=== PATIENT | male | born 1985 | race Caucasian/White ===

== ENCOUNTER 2017-03-28 14:00 | Emergency (ER) | payer OTHER ==
[2017-03-28 14:07] VITALS: BP 133/84; PULSE 102; RESP 16; TEMP 968
[2017-03-28] MEDS ORDERED: IBUPROFEN 800 MG TAB PO STA (14:44)
--- NOTE | 2017-03-28 14:50 | ED ---
ENT HPI - General Chief complaint: Dental/Oral Stated complaint: Tooth Pain Source: patient Mode of arrival: ambulatory Limitations: no limitations - History of Present Illness Initial comments: Patient is a 32-year-old male presenting to the emergency department with complains of tooth pain. Patient states that he has very poor teeth and is in the process of having them pulled. Patient states he has an appointment with a dentist in [place] on March 31 to have his teeth pulled but is complaining of increased pain to primarily to the right side of his upper mouth getting increasingly worse over the last 4-5 days. Patient currently rates pain 8 out of 10 exacerbated with eating. Patient denies chills, fevers, nausea , vomiting, shortness of breath, chest pain, or abdominal pain. Patient denies trismus. Patient denies facial swelling or ear pain. Patient states that he took Motrin 200 this morning with minimal relief. Patient states that he has a history of fibromyalgia and normally takes tramadol and is on a pain contract. MD complaint: tooth pain Onset/Timin -: days(s) Location: tooth # (13) Severity: severe Severity scale (1-10): 10 Quality: sharp Consistency: constant Improves with: NSAID Worsens with: eating - Related Data Home Medications Medication Instructions Recorded Confirmed LORazepam [Ativan] 2 mg PO BID 03/28/17 03/28/17 buPROPion HCL [Wellbutrin SR] 150 mg PO 03/28/17 03/28/17 Previous Rx's Medication Instructions Recorded RX: Ibuprofen [Motrin] 800 mg PO Q6HR PRN #20 tab 07/03/16 RX: cloNIDine HCL [Catapres] 0.2 mg PO BID #10 tab 11/08/16 RX: traZODone HCL 100 mg PO BID #10 tab 11/08/16 Ibuprofen [Motrin] 800 mg PO Q8HR PRN #20 tab 03/28/17 RX: Penicillin V Potassium [Pen 500 mg PO QID #28 tab 03/28/17 Vee K] Allergies Allergy/AdvReac Type Severity Reaction Status Date / Time bee pollen Allergy Unknown Verified 03/28/17 14:07 venom-honey bee Allergy Unknown Verified 03/28/17 14:07 [bee venom (honey bee)] Review of Systems ROS Statement: Those systems with pertinent positive or pertinent negative responses have been documented in the HPI. ROS Other: All systems not noted in ROS Statement are negative. Past Medical History Past Medical History: Fibromyalgia, Hypertension Additional Past Medical History / Comment(s): carpal tunnel, back pain History of Any Multi-Drug Resistant Organisms: None Reported Past Surgical History: No Surgical Hx Reported Past Psychological History: Anxiety, Bipolar, Depression, Schizoaffective Disorder Smoking Status: Current every day smoker Past Alcohol Use History: None Reported Past Drug Use History: Marijuana General Exam Limitations: no limitations General appearance: alert, in no apparent distress Head exam: Present: atraumatic, normocephalic, normal inspection Eye exam: Present: normal appearance, PERRL. Absent: scleral icterus, conjunctival injection, periorbital swelling, periorbital tenderness ENT exam: Present: normal oropharynx, mucous membranes moist, TM's normal bilaterally, normal external ear exam Expanded Mouth exam: Present: tongue normal. Absent: drooling, trismus Teeth exam: Present: dental tenderness # (13), other (Very poor dentition with multiple tooth fractures and missing teeth) Throat exam: normal inspection. negative: tonsillar erythema, tonsillomegaly, tonsillar exudate, R peritonsillar mass, L peritonsillar mass Neck exam: Present: normal inspection, full ROM. Absent: tenderness, lymphadenopathy Respiratory exam: Present: normal lung sounds bilaterally. Absent: respiratory distress, wheezes, rales, rhonchi, stridor Cardiovascular Exam: Present: regular rate, normal rhythm, normal heart sounds. Absent: systolic murmur, diastolic murmur, rubs, gallop, clicks GI/Abdominal exam: Present: soft, normal bowel sounds. Absent: distended, tenderness, guarding, rebound, rigid Neurological exam: Present: alert, oriented X3, normal gait, other (No focal deficits noted) Psychiatric exam: Present: normal affect, normal mood Skin exam: Present: warm, dry, intact, normal color Course Vital Signs 03/28/17 14:04 Temperature 968.0 F H Pulse Rate 102 H Respiratory 16 Rate Blood Pressure 133/84 O2 Sat by Pulse 97 Oximetry Medical Decision Making - Medical Decision Making Dental pain. No evidence of abscess. Patient placed on antibiotics and given prescriptions for Motrin with instructions to keep dentist appointment. Patient agrees with treatment plan. Discharge instructions and return parameters reviewed. Disposition Clinical Impression: Tooth pain Disposition: HOME SELF-CARE Condition: Good Instructions: Toothache (ED) Additional Instructions: Please follow-up with dentist in [place] on March 30 as already scheduled. Finish oral antibiotics as prescribed. Continue Motrin as prescribed for pain as necessary. Please return to the emergency department if symptoms do not improve or get worse such as fevers, increased swelling, inability to open jaw, inability to swallow or any other worsening symptoms. Please follow up with a dentist. If you do not have a dentist, you may contact [facility]. Phone number is [phone] for existing clients. For new clients you may call [phone]. Another option is you have is the [facility]. Phone number is [phone]. Medications as directed. [place] gargles. Cold fluids can sometimes help with pain as well. Return to the Emergency Room for any worsening or changing symptoms. Use cold compresses to the outside of the face. Prescriptions: Ibuprofen [Motrin] 800 mg PO Q8HR PRN #20 tab PRN Reason: Pain RX: Penicillin V Potassium [Pen Vee K] 500 mg PO QID #28 tab Referrals: Bran Perera MD [Primary Care Provider] - 1-2 days Time of Disposition: 14:50
== END 2017-03-28 15:07 | disposition home or self-care (01) ==
LOC: EC 14:00
DX: K08.89 Other specified disorders of teeth and supporting structures (principal); F32.9 Major depressive disorder, single episode, unspecified; F41.9 Anxiety disorder, unspecified; F17.200 Nicotine dependence, unspecified, uncomplicated; Z91.030 Bee allergy status; Z91.018 Allergy to other foods; Z79.899 Other long term (current) drug therapy
CPT/HCPCS: 99282

== ENCOUNTER 2017-05-25 20:53 | Emergency (ER) | payer OTHER ==
[2017-05-25 21:09] VITALS: BP 172/98; PULSE 110; RESP 16; TEMP 98.6
--- NOTE | 2017-05-25 21:13 | ED ---
ENT HPI - General Chief complaint: Dental/Oral Stated complaint: Abscessed Tooth Time Seen by Provider: 05/25/17 21:10 Source: patient, RN notes reviewed Mode of arrival: ambulatory Limitations: no limitations - History of Present Illness Initial comments: 32-year-old male presents emergency Department chief complaint of left-sided dental pain that started yesterday. Patient states she woke up with swelling today. Patient denies any fever or chills states he has multiple fractured teeth in essentially eroded teeth. Patient states he has been seen in the [facility] in which she's been slowly getting his teeth pulled. Patient states that he's had multiple dental infections in the past. - Related Data Home Medications Medication Instructions Recorded Confirmed LORazepam [Ativan] 2 mg PO BID 03/28/17 03/28/17 buPROPion HCL [Wellbutrin SR] 150 mg PO 03/28/17 03/28/17 Previous Rx's Medication Instructions Recorded cloNIDine HCL [Catapres] 0.2 mg PO BID #10 tab 11/08/16 traZODone HCL 100 mg PO BID #10 tab 11/08/16 Ibuprofen [Motrin] 800 mg PO Q8HR PRN #20 tab 03/28/17 Penicillin V Potassium [Pen Vee K] 500 mg PO QID #28 tab 03/28/17 Hydrocodone/Acetaminophen [[place] 1 tab PO Q6HR PRN #15 tab 05/25/17 5-325] Penicillin V Potassium [Pen Vee K] 500 mg PO QID #40 tab 05/25/17 Allergies Allergy/AdvReac Type Severity Reaction Status Date / Time bee pollen Allergy Unknown Verified 05/25/17 21:08 venom-honey bee Allergy Unknown Verified 05/25/17 21:08 [bee venom (honey bee)] Review of Systems ROS Statement: Those systems with pertinent positive or pertinent negative responses have been documented in the HPI. ROS Other: All systems not noted in ROS Statement are negative. Past Medical History Past Medical History: Fibromyalgia, Hypertension Additional Past Medical History / Comment(s): carpal tunnel, back pain History of Any Multi-Drug Resistant Organisms: None Reported Past Surgical History: No Surgical Hx Reported Past Psychological History: Anxiety, Bipolar, Depression, Schizoaffective Disorder Smoking Status: Current every day smoker Past Alcohol Use History: None Reported Past Drug Use History: Marijuana General Exam Limitations: no limitations General appearance: alert, in no apparent distress Head exam: Present: atraumatic, normocephalic, normal inspection Eye exam: Present: normal appearance, PERRL, EOMI. Absent: scleral icterus, conjunctival injection, periorbital swelling ENT exam: Present: mucous membranes moist, TM's normal bilaterally, normal external ear exam. Absent: normal exam, normal oropharynx (Edentulous, swelling noted on the left lower gumline and of the left cheek) Neck exam: Present: normal inspection, full ROM. Absent: tenderness, meningismus, lymphadenopathy Respiratory exam: Present: normal lung sounds bilaterally. Absent: respiratory distress, wheezes, rales, rhonchi, stridor Cardiovascular Exam: Present: regular rate, normal rhythm, normal heart sounds. Absent: systolic murmur, diastolic murmur, rubs, gallop, clicks Course Vital Signs 05/25/17 21:06 Temperature 98.6 F Pulse Rate 110 H Respiratory 16 Rate Blood Pressure 172/98 O2 Sat by Pulse 99 Oximetry Medical Decision Making - Medical Decision Making 32-year-old male presented for dental infection. Patient placed on antibiotics at this time. Patient will follow-up with dentist return parameters were discussed Disposition Clinical Impression: Pain, dental, Fracture of tooth Disposition: HOME SELF-CARE Condition: Stable Instructions: Toothache (ED) Additional Instructions: Please return to the Emergency Department if symptoms worsen or any other concerns. Prescriptions: Hydrocodone/Acetaminophen [[place] 5-325] 1 tab PO Q6HR PRN #15 tab PRN Reason: Pain Penicillin V Potassium [Pen Vee K] 500 mg PO QID #40 tab Referrals: Bran Perera MD [Primary Care Provider] - 1-2 days Time of Disposition: 21:12
== END 2017-05-25 21:30 | disposition home or self-care (01) ==
LOC: EC 20:53
DX: S02.5XXA Fracture of tooth (traumatic), initial encounter for closed fracture (principal); F41.9 Anxiety disorder, unspecified; F32.9 Major depressive disorder, single episode, unspecified; F17.200 Nicotine dependence, unspecified, uncomplicated; Z79.899 Other long term (current) drug therapy; Z91.030 Bee allergy status
CPT/HCPCS: 99282

== ENCOUNTER 2017-08-01 15:48 | Emergency (ER) | payer OTHER ==
[2017-08-01 16:04] VITALS: BP 135/91; PULSE 95; RESP 18; TEMP 98.1
--- NOTE | 2017-08-01 16:10 | ED ---
ENT HPI - General Chief complaint: Dental/Oral Stated complaint: Dental Pain Time Seen by Provider: 08/01/17 16:05 Source: patient, RN notes reviewed Mode of arrival: ambulatory Limitations: no limitations - History of Present Illness Initial comments: 32-year-old male present emergency from for dental pain. Patient has multiple missing teeth and states he's been going to the [facility]. Patient states that he is scheduled for dental placement and more teeth extractions. - Related Data Home Medications Medication Instructions Recorded Confirmed LORazepam [Ativan] 2 mg PO BID 03/28/17 03/28/17 buPROPion HCL [Wellbutrin SR] 150 mg PO 03/28/17 03/28/17 Previous Rx's Medication Instructions Recorded RX: cloNIDine HCL [Catapres] 0.2 mg PO BID #10 tab 11/08/16 RX: traZODone HCL 100 mg PO BID #10 tab 11/08/16 Ibuprofen [Motrin] 800 mg PO Q8HR PRN #20 tab 03/28/17 RX: Penicillin V Potassium [Pen 500 mg PO QID #28 tab 03/28/17 Vee K] Hydrocodone/Acetaminophen [[place] 1 tab PO Q6HR PRN #15 tab 05/25/17 5-325] RX: Penicillin V Potassium [Pen 500 mg PO QID #40 tab 05/25/17 Vee K] Acetaminophen-Codeine 300-30mg 1 tab PO Q4H PRN #20 tablet 08/01/17 [Tylenol #3] RX: Penicillin V Potassium [Pen 500 mg PO QID #40 tab 08/01/17 Vee K] Allergies Allergy/AdvReac Type Severity Reaction Status Date / Time bee pollen Allergy Unknown Verified 08/01/17 16:04 venom-honey bee Allergy Unknown Verified 08/01/17 16:04 [bee venom (honey bee)] Review of Systems ROS Statement: Those systems with pertinent positive or pertinent negative responses have been documented in the HPI. ROS Other: All systems not noted in ROS Statement are negative. Past Medical History Past Medical History: Fibromyalgia, Hypertension Additional Past Medical History / Comment(s): carpal tunnel, back pain History of Any Multi-Drug Resistant Organisms: None Reported Past Surgical History: No Surgical Hx Reported Past Psychological History: Anxiety, Bipolar, Depression, Schizoaffective Disorder Smoking Status: Current every day smoker Past Alcohol Use History: None Reported Past Drug Use History: Marijuana General Exam Limitations: no limitations General appearance: alert, in no apparent distress Head exam: Present: atraumatic, normocephalic, normal inspection Eye exam: Present: normal appearance, PERRL, EOMI. Absent: scleral icterus, conjunctival injection, periorbital swelling ENT exam: Present: mucous membranes moist. Absent: normal exam, normal oropharynx (Edentulous, multiple missing teeth and multiple dental fractures noted) Neck exam: Present: normal inspection. Absent: tenderness, meningismus, lymphadenopathy Course Vital Signs 08/01/17 16:02 Temperature 98.1 F Pulse Rate 95 Respiratory 18 Rate Blood Pressure 135/91 O2 Sat by Pulse 98 Oximetry Medical Decision Making - Medical Decision Making 32-year-old male presented for dental pain. Patient will be given antibiotics and pain medication and follow-up with dental clinic return parameters were discussed. Disposition Clinical Impression: Fracture of tooth, Dental caries, Pain, dental Disposition: HOME SELF-CARE Condition: Stable Instructions: Toothache (ED) Additional Instructions: Please return to the Emergency Department if symptoms worsen or any other concerns. Prescriptions: Acetaminophen-Codeine 300-30mg [Tylenol #3] 1 tab PO Q4H PRN #20 tablet PRN Reason: pain RX: Penicillin V Potassium [Pen Vee K] 500 mg PO QID #40 tab Referrals: None,Stated [Primary Care Provider] - 1-2 days Time of Disposition: 16:09
--- NOTE | 2017-08-01 16:12 | ED ---
ENT HPI - General Chief complaint: Dental/Oral Stated complaint: Dental Pain Time Seen by Provider: 08/01/17 16:05 Source: patient, RN notes reviewed Mode of arrival: ambulatory Limitations: no limitations - History of Present Illness Initial comments: 32-year-old male presents emergency Department chief complaint of dental pain. Patient states that has increased the last 2 days. Patient states has very poor dentition and has been going to [place] [facility] for a while for his teeth. Patient states that he just (dentures and states that he has have the rest of his lower teeth removed. Patient states he still on-call no reported fever. Patient eventually chills and abscess previous treadmill cream additional facial swelling. - Related Data Home Medications Medication Instructions Recorded Confirmed LORazepam [Ativan] 2 mg PO BID 03/28/17 03/28/17 buPROPion HCL [Wellbutrin SR] 150 mg PO 03/28/17 03/28/17 Previous Rx's Medication Instructions Recorded cloNIDine HCL [Catapres] 0.2 mg PO BID #10 tab 11/08/16 traZODone HCL 100 mg PO BID #10 tab 11/08/16 Ibuprofen [Motrin] 800 mg PO Q8HR PRN #20 tab 03/28/17 Penicillin V Potassium [Pen Vee K] 500 mg PO QID #28 tab 03/28/17 Hydrocodone/Acetaminophen [[place] 1 tab PO Q6HR PRN #15 tab 05/25/17 5-325] Penicillin V Potassium [Pen Vee K] 500 mg PO QID #40 tab 05/25/17 Acetaminophen-Codeine 300-30mg 1 tab PO Q4H PRN #20 tablet 08/01/17 [Tylenol #3] Penicillin V Potassium [Pen Vee K] 500 mg PO QID #40 tab 08/01/17 Allergies Allergy/AdvReac Type Severity Reaction Status Date / Time bee pollen Allergy Unknown Verified 08/01/17 16:04 venom-honey bee Allergy Unknown Verified 08/01/17 16:04 [bee venom (honey bee)] Review of Systems ROS Statement: Those systems with pertinent positive or pertinent negative responses have been documented in the HPI. ROS Other: All systems not noted in ROS Statement are negative. Past Medical History Past Medical History: Fibromyalgia, Hypertension Additional Past Medical History / Comment(s): carpal tunnel, back pain History of Any Multi-Drug Resistant Organisms: None Reported Past Surgical History: No Surgical Hx Reported Past Psychological History: Anxiety, Bipolar, Depression, Schizoaffective Disorder Smoking Status: Current every day smoker Past Alcohol Use History: None Reported Past Drug Use History: Marijuana General Exam Limitations: no limitations General appearance: alert, in no apparent distress Head exam: Present: atraumatic, normocephalic, normal inspection Eye exam: Present: normal appearance, PERRL, EOMI. Absent: scleral icterus, conjunctival injection, periorbital swelling ENT exam: Present: mucous membranes moist, TM's normal bilaterally, normal external ear exam. Absent: normal exam, normal oropharynx (Edentulous, multiple missing teeth and multiple eroded teeth noted no drainable abscess) Neck exam: Present: normal inspection, full ROM. Absent: tenderness, meningismus, lymphadenopathy Respiratory exam: Present: normal lung sounds bilaterally. Absent: respiratory distress, wheezes, rales, rhonchi, stridor Cardiovascular Exam: Present: regular rate, normal rhythm, normal heart sounds. Absent: systolic murmur, diastolic murmur, rubs, gallop, clicks Course Vital Signs 08/01/17 16:02 Temperature 98.1 F Pulse Rate 95 Respiratory 18 Rate Blood Pressure 135/91 O2 Sat by Pulse 98 Oximetry Medical Decision Making - Medical Decision Making 32-year-old male presented for dental pain. Patient was started on antibiotics for infection and given a short course of pain medication. Patient will follow- up with [place] [facility] on Thursday return parameters were discussed. Disposition Clinical Impression: Fracture of tooth, Dental caries, Pain, dental Disposition: HOME SELF-CARE Condition: Stable Instructions: Toothache (ED) Additional Instructions: Please return to the Emergency Department if symptoms worsen or any other concerns. Prescriptions: Acetaminophen-Codeine 300-30mg [Tylenol #3] 1 tab PO Q4H PRN #20 tablet PRN Reason: pain Penicillin V Potassium [Pen Vee K] 500 mg PO QID #40 tab Referrals: None,Stated [Primary Care Provider] - 1-2 days Time of Disposition: 16:12
== END 2017-08-01 16:15 | disposition home or self-care (01) ==
LOC: EC 15:48
DX: K03.81 Cracked tooth (principal); K02.9 Dental caries, unspecified; F25.9 Schizoaffective disorder, unspecified; F31.9 Bipolar disorder, unspecified; F41.9 Anxiety disorder, unspecified; F17.200 Nicotine dependence, unspecified, uncomplicated; Z79.899 Other long term (current) drug therapy; Z91.030 Bee allergy status
CPT/HCPCS: 99282

== ENCOUNTER 2017-08-13 19:28 | Emergency (ER) | payer OTHER ==
[2017-08-13 19:50] VITALS: BP 157/87; PULSE 120; RESP 18; TEMP 98.5
--- NOTE | 2017-08-13 19:54 | ED ---
General Adult HPI - General Chief complaint: Dental/Oral Stated complaint: Dental Pain Time Seen by Provider: 08/13/17 19:41 Source: patient, RN notes reviewed Mode of arrival: ambulatory Limitations: no limitations - History of Present Illness Initial comments: Patient is a 32-year-old male with significant past medical history for previous dental infections and poor dental hygiene's, who presents emergency room today with a chief complaint of increased dental pain. Does admit that he was here seen recently placed on penicillin. Pulses equal in the dentist. States he needs to have his teeth pulled with the dentist will not pull until infection is completely gone. States did see the dentist in the day but did not recommend any new antibiotic. Patient admits that he just finished clindamycin. He denies any other complaints or symptoms. Patient denies any recent fever, chills, shortness of breath, chest pain, back pain, abdominal pain , nausea or vomiting, numbness or tingling, dysuria or hematuria, constipation or diarrhea, headaches or visual changes, or any other complaints. - Related Data Home Medications Medication Instructions Recorded Confirmed LORazepam [Ativan] 2 mg PO BID 03/28/17 03/28/17 buPROPion HCL [Wellbutrin SR] 150 mg PO 03/28/17 03/28/17 Previous Rx's Medication Instructions Recorded cloNIDine HCL [Catapres] 0.2 mg PO BID #10 tab 11/08/16 traZODone HCL 100 mg PO BID #10 tab 11/08/16 Ibuprofen [Motrin] 800 mg PO Q8HR PRN #20 tab 03/28/17 Penicillin V Potassium [Pen Vee K] 500 mg PO QID #28 tab 03/28/17 Hydrocodone/Acetaminophen [[place] 1 tab PO Q6HR PRN #15 tab 05/25/17 5-325] Penicillin V Potassium [Pen Vee K] 500 mg PO QID #40 tab 05/25/17 Acetaminophen-Codeine 300-30mg 1 tab PO Q4H PRN #20 tablet 08/01/17 [Tylenol #3] Penicillin V Potassium [Pen Vee K] 500 mg PO QID #40 tab 08/01/17 Clindamycin HCl [Cleocin] 300 mg PO Q6HR 10 Days 08/13/17 Ibuprofen [Motrin] 800 mg PO Q6HR #30 tab 08/13/17 Allergies Allergy/AdvReac Type Severity Reaction Status Date / Time bee pollen Allergy Unknown Verified 08/13/17 19:43 venom-honey bee Allergy Unknown Verified 08/13/17 19:43 [bee venom (honey bee)] Review of Systems ROS Statement: Those systems with pertinent positive or pertinent negative responses have been documented in the HPI. ROS Other: All systems not noted in ROS Statement are negative. Past Medical History Past Medical History: Fibromyalgia, Hypertension Additional Past Medical History / Comment(s): carpal tunnel, back pain History of Any Multi-Drug Resistant Organisms: None Reported Past Surgical History: No Surgical Hx Reported Past Psychological History: Anxiety, Bipolar, Depression, Schizoaffective Disorder Smoking Status: Current every day smoker Past Alcohol Use History: None Reported Past Drug Use History: Marijuana General Exam - General Exam Comments Initial Comments: General: The patient is awake and alert, in no distress, and does not appear acutely ill. Eye: Pupils are equal, round and reactive to light, extra-ocular movements are intact. No nystagmus. There is normal conjunctiva bilaterally. No signs of icterus. Ears, nose, mouth and throat: There are moist mucous membranes and no oral lesions. Poor dental hygiene. Multiple missing and fractured teeth. Patient does have tenderness in the lower gumline or right lower side. No sign of abscess. Neck: The neck is supple, there is no tenderness or JVD. Cardiovascular: There is a regular rate and rhythm. No murmur, rub or gallop is appreciated. Respiratory: Lungs are clear to auscultation, respirations are non-labored, breath sounds are equal. No wheezes, stridor, rales, or rhonchi. Musculoskeletal: Normal ROM, no tenderness. Strength 5/5. Sensation intact. Pulses equal bilaterally 2+. Neurological: A&O x 3. CN II-XII intact, There are no obvious motor or sensory deficits. Coordination appears grossly intact. Speech is normal. Skin: Skin is warm and dry and no rashes or lesions are noted. Psychiatric: Cooperative, appropriate mood & affect, normal judgment. Limitations: no limitations Course Vital Signs 08/13/17 19:43 Temperature 98.5 F Pulse Rate 120 H Respiratory 18 Rate Blood Pressure 157/87 O2 Sat by Pulse 96 Oximetry Medical Decision Making - Medical Decision Making Patient will be started on vancomycin emergency room as he recently finished penicillin. Advised to follow-up with his dentist tomorrow for any other recommendations of antibiotics and for further evaluation. Disposition Clinical Impression: Pain, dental Disposition: HOME SELF-CARE Condition: Good Instructions: Toothache (ED) Additional Instructions: Please follow-up with dentist/family doctor in the next 2 days of symptoms have not improved. Please return to emergency room if the symptoms increase or worsen or for any other concerns. Prescriptions: Clindamycin HCl [Cleocin] 300 mg PO Q6HR 10 Days Ibuprofen [Motrin] 800 mg PO Q6HR #30 tab Referrals: None,Stated [Primary Care Provider] - 1-2 days Time of Disposition: 19:52
== END 2017-08-13 20:02 | disposition home or self-care (01) ==
LOC: EC 19:28
DX: K08.89 Other specified disorders of teeth and supporting structures (principal); F31.9 Bipolar disorder, unspecified; F41.9 Anxiety disorder, unspecified; F17.200 Nicotine dependence, unspecified, uncomplicated; Z91.018 Allergy to other foods; Z91.030 Bee allergy status; Z79.899 Other long term (current) drug therapy
CPT/HCPCS: 99282

== ENCOUNTER 2017-09-22 09:31 | Emergency (ER) | payer OTHER ==
[2017-09-22 09:40] VITALS: RESP 18
--- NOTE | 2017-09-22 10:03 | ED ---
General Adult HPI - General Chief complaint: ENT Stated complaint: Pain/sore throat/anxiety Time Seen by Provider: 09/22/17 09:48 Source: patient, RN notes reviewed, old records reviewed Mode of arrival: ambulatory Limitations: no limitations - History of Present Illness Initial comments: Patient is a 32-year-old male who presents emergency room today with multiple complaints. He states one of his pain reasons was coming for referral to family doctor. The doctor he was trying to see was a surgeon in town. He states he needs his medications for pain that he has for his carpal tunnel in his back. Patient states he currently gets his medications through [facility]. He states he would like to also see a different psychiatrist but has not been able to find a doctor who accepts his insurance. Patient admits also to a sore throat. He states he had one a few weeks ago and seems to be coming back. States it hurts when he swallows. He denies any other complaints or symptoms at this time. Patient denies any recent fever, chills, shortness of breath, chest pain, abdominal pain, nausea or vomiting, numbness or tingling, dysuria or hematuria, constipation or diarrhea, headaches or visual changes, or any other complaints. - Related Data Home Medications Medication Instructions Recorded Confirmed Ergocalciferol [Vitamin D2] 50,000 unit PO Q30D 09/22/17 09/22/17 buPROPion HCL [Wellbutrin XL] 300 mg PO DAILY 09/22/17 09/22/17 cloNIDine HCL [Catapres] 0.2 mg PO BID 09/22/17 09/22/17 hydrOXYzine PAMOATE 25 mg PO BID 09/22/17 09/22/17 risperiDONE [RisperDAL] 2 mg PO DAILY 09/22/17 09/22/17 Previous Rx's Medication Instructions Recorded Ibuprofen [Motrin] 800 mg PO Q6HR #30 tab 09/22/17 Allergies Allergy/AdvReac Type Severity Reaction Status Date / Time bee pollen Allergy Unknown Verified 09/22/17 09:45 venom-honey bee Allergy Anaphylaxis Verified 09/22/17 09:45 [bee venom (honey bee)] Review of Systems ROS Statement: Those systems with pertinent positive or pertinent negative responses have been documented in the HPI. ROS Other: All systems not noted in ROS Statement are negative. Past Medical History Past Medical History: Fibromyalgia, Hypertension Additional Past Medical History / Comment(s): carpal tunnel, back pain History of Any Multi-Drug Resistant Organisms: None Reported Past Surgical History: No Surgical Hx Reported Past Psychological History: Anxiety, Bipolar, Depression, Schizoaffective Disorder Smoking Status: Current every day smoker Past Alcohol Use History: None Reported Past Drug Use History: Marijuana General Exam - General Exam Comments Initial Comments: General: The patient is awake and alert, in no distress, and does not appear acutely ill. Eye: Pupils are equal, round and reactive to light, extra-ocular movements are intact. No nystagmus. There is normal conjunctiva bilaterally. No signs of icterus. Ears, nose, mouth and throat: There are moist mucous membranes and no oral lesions. Increased redness to the posterior pharynx. Uvula is midline. Patient swallows without any difficulty. Neck: The neck is supple, there is no tenderness or JVD. Cardiovascular: There is a regular rate and rhythm. No murmur, rub or gallop is appreciated. Respiratory: Lungs are clear to auscultation, respirations are non-labored, breath sounds are equal. No wheezes, stridor, rales, or rhonchi. Musculoskeletal: Normal ROM, no tenderness. Strength 5/5. Sensation intact. Pulses equal bilaterally 2+. Neurological: A&O x 3. CN II-XII intact, There are no obvious motor or sensory deficits. Coordination appears grossly intact. Speech is normal. Skin: Skin is warm and dry and no rashes or lesions are noted. Psychiatric: Cooperative, appropriate mood & affect, normal judgment. Limitations: no limitations Course Vital Signs 09/22/17 09:38 Temperature 97.0 F L Pulse Rate 107 H Respiratory 18 Rate Blood Pressure 138/78 O2 Sat by Pulse 99 Oximetry Medical Decision Making - Medical Decision Making Strep test negative. Long conversation with patient about contacting his insurance company for further information about which doctors except his insurance. He did his own search online following doctor that takes it but this is a general surgeon in [facility]. Did discuss that this are would be unable to help him with his chronic conditions and chronic medications. Advised patient to call his insurance company for a list of providers. Patient requesting pain medication of ibuprofen. She states 800 mg regularly for his pain. He does not have this. We give patient a short prescription advised to continue to follow-up. - Lab Data Lab Results 09/22/17 Range/Units 10:00 Group A Strep Rapid Negative (Negative) Disposition Clinical Impression: Pharyngitis, Chronic pain Disposition: HOME SELF-CARE Condition: Good Instructions: Pharyngitis (ED) Additional Instructions: Please follow-up with family physician as discussed. Please contact her insurance provider from list of providers. Please use medication as prescribed and return here to the emergency room for any other concerns. Prescriptions: Ibuprofen [Motrin] 800 mg PO Q6HR #30 tab Referrals: None,Stated [Primary Care Provider] - 1-2 days Time of Disposition: 10:51
[2017-09-22 11:00] VITALS: BP 147/87; PULSE 92; TEMP 97.5
== END 2017-09-22 11:00 | disposition home or self-care (01) ==
LOC: EC 09:31
DX: J02.9 Acute pharyngitis, unspecified (principal); G89.29 Other chronic pain; I10 Essential (primary) hypertension; F32.9 Major depressive disorder, single episode, unspecified; F41.9 Anxiety disorder, unspecified; F25.0 Schizoaffective disorder, bipolar type; F17.200 Nicotine dependence, unspecified, uncomplicated; Z79.899 Other long term (current) drug therapy; Z91.030 Bee allergy status
CPT/HCPCS: 87081; 87430; 99284

== ENCOUNTER → 2017-10-07 | Outpatient (CLI) | payer OTHER ==
--- NOTE | 2017-10-07 12:23 | XR ---
EXAMINATION TYPE: XR lumbosacral spine min 4V DATE OF EXAM: 10/07/2017 CLINICAL HISTORY: pain COMPARISON: NONE TECHNIQUE: Frontal, lateral, and oblique images of the lumbar spine are obtained. FINDINGS: There are 5 lumbar type vertebral bodies identified. The lumbar spine shows satisfactory alignment without evidence of acute fracture or dislocation. Vertebral body heights are within normal limits. Disc spaces are well preserved. The overlying soft tissue appears unremarkable. IMPRESSION: No acute fracture or dislocation is seen in the lumbar spine.ICD 10 NO FRACTURE, INITIAL EVALUATION
--- NOTE | 2017-10-07 12:25 | XR ---
EXAMINATION TYPE: XR cervical spine comp DATE OF EXAM: 10/07/2017 CLINICAL HISTORY: pain COMPARISON: NONE TECHNIQUE: Frontal, lateral, oblique, swimmers, and open mouth view of the cervical spine are obtaine d. FINDINGS: The cervical spine is visualized in its entirety from C1 thru the top of T1 level. It is s atisfactory in alignment without evidence of acute fracture or dislocation. The pre-vertebral soft t issue appears within normal limits. Disc spaces are well preserved. The C1-C2 articulation is unremar kable on the open mouth view. The oblique images are within normal limits. IMPRESSION: No acute fracture or dislocation is seen in the cervical spine.ICD 10 NO FRACTURE, INITI AL EVALUATION
--- NOTE | 2017-10-07 12:26 | XR ---
EXAMINATION TYPE: XR shoulder limited bilateral DATE OF EXAM: 10/07/2017 CLINICAL HISTORY: Pain TECHNIQUE: Two views of the bilateral shoulders are obtained. COMPARISON: None. FINDINGS: There is no acute fracture/dislocation evident . The acromioclavicular and glenohumeral ed int spaces appear within normal limits. The visualized ribs are intact and unremarkable. IMPRESSION: There is no acute fracture or dislocation
== END | disposition home or self-care (01) ==
LOC: RADXRMAIN 11:39
PROVIDERS: ATTEND Family Medicine
DX: M54.5 Low back pain (principal); M54.2 Cervicalgia; M25.512 Pain in left shoulder; M25.511 Pain in right shoulder
CPT/HCPCS: 72050; 72110

== ENCOUNTER 2022-10-18 18:29 | Inpatient (IN) | payer MEDICAID, OTHER ==
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
[2022-10-18] MEDS ORDERED: DIPH,PERTUS(ACELL)TETVAC-LF 0.5 ML VIAL IM ONE (18:42)
[2022-10-18 19:18] LABS: Urn Cannabinoid Scrn Detected (NotDetected)
[2022-10-18] MEDS ORDERED: IBUPROFEN 800 MG TAB PO STA (19:18)
[2022-10-18] MEDS ORDERED: LORazepam 1 MG TAB PO STA (19:18)
[2022-10-18 19:19] LABS: Amphetamine Screen,Urine Not Detected (NotDetected); Barbiturate Screen,Urine Not Detected (NotDetected); Benzodiazepines Screen,Urine Not Detected (NotDetected); Cocaine Screen,Urine Not Detected (NotDetected); Methadone Screen, Urine Not Detected (NotDetected); Opiate Screen,Urine Not Detected (NotDetected); Oxycodone Screen, Urine Not Detected (NotDetected); Phencyclidine Screen,Urine Not Detected (NotDetected); Tricyclic Antidepressant,Urine Not Detected (NotDetected)
--- NOTE | 2022-10-18 19:56 | XR ---
EXAMINATION TYPE: XR hand complete RT DATE OF EXAM: 10/18/2022 7:06 PM INDICATION: Patient age:Male; 37 years old; Reason for study: hand injuries; PHH. COMPARISON: None TECHNIQUE: Frontal, lateral and oblique views of the right hand were obtained. FINDINGS: Normal alignment of the visualized joints. No acute osseous pathology is identified. No e vidence of soft tissue swelling. IMPRESSION: No acute osseous pathology.
[2022-10-18] MEDS ORDERED: HYDROcodone/APAP 5-325MG 1 EACH TAB PO STA (20:40)
[2022-10-18] MEDS ORDERED: LORazepam 2 MG/ML INJ IM PRN (21:42)
[2022-10-18] MEDS ORDERED: NON FORMULARY DRUG (Omeprazole [Omeprazole] 20 MG Capsule.Dr) PO SCH (21:45)
[2022-10-18] MEDS ORDERED: lisinopriL 5 MG TAB PO SCH (21:45)
[2022-10-18] MEDS ORDERED: ATORVASTATIN 20 MG TAB PO SCH (21:45)
[2022-10-18] MEDS ORDERED: CHOLECALCIFEROL 125 MCG (5000 IU) TABLET PO SCH (21:45)
[2022-10-18] MEDS: cloNIDine HCL 0.2 MG TAB PO SCH (23:09)
[2022-10-18] MEDS: hydrOXYzine pamoate 25 MG CAP PO SCH (23:09)
[2022-10-18] MEDS: risperiDONE 2 MG TAB PO SCH (23:10)
[2022-10-18] MEDS: LORazepam 1 MG TAB PO PRN (23:28)
[2022-10-19] MEDS ORDERED: MAG HYDROX/AL HYDROX/SIMETH 355 ML BOTTLE PO PRN
[2022-10-19] MEDS ORDERED: HALOPERIDOL LACTATE 5 MG/ML 1 ML VIAL IM PRN
[2022-10-19] MEDS ORDERED: KETOROLAC 15 MG/ML 1 ML VIAL IM STA (00:18)
[2022-10-19] MEDS: HYDROcodone/APAP 5-325MG 1 EACH TAB PO PRN ×5 (04:59→21:44)
--- NOTE | 2022-10-19 06:22 | P.PN ---
Progress Note - Text Progress Note Date: 10/19/22 Patient is inappropriate for evaluation at this time due to acute psychosis, is currently sleeping RN suggested not to wake up patient at this time, we'll attempt reevaluation later today
[2022-10-19] MEDS: LORazepam 1 MG TAB PO PRN ×3 (08:27→17:37)
[2022-10-19] MEDS: IBUPROFEN 400 MG TAB PO PRN ×3 (08:30→20:08)
[2022-10-19] MEDS: hydrOXYzine pamoate 25 MG CAP PO SCH ×3 (08:32→20:08)
[2022-10-19] MEDS: risperiDONE 2 MG TAB PO SCH ×3 (08:32→20:08)
[2022-10-19] MEDS: cloNIDine HCL 0.2 MG TAB PO SCH ×3 (08:32→20:08)
[2022-10-19] MEDS ORDERED: MAGNESIUM HYDROXIDE 2,400 MG/10 ML CUP PO PRN (09:00)
[2022-10-19] MEDS: NICOTINE 14MG/24HR PATCH TRANSDERM SCH (09:07)
[2022-10-19 10:03] LABS: Basophils # (A) 0.1 k/uL (0-0.2); Basophils % (A) 0 %; Eosinophils # (A) 0.1 k/uL (0-0.7); Eosinophils % (A) 1 %; HCT 37.9 % (39.0-53.0); HGB 13.2 gm/dL (13.0-17.5); Lymphocytes # (A) 2.7 k/uL (1.0-4.8); Lymphocytes % (A) 20 %; MCH 31.6 pg (25.0-35.0); MCHC 34.8 g/dL (31.0-37.0); MCV 90.8 fL (80.0-100.0); Mean Platelet Volume 7.4; Monocytes # (A) 0.7 k/uL (0-1.0); Monocytes % (A) 5 %; Neutrophils # (A) 9.9 k/uL (1.3-7.7); Neutrophils % (A) 73 %; Platelet Count 378 k/uL (150-450); RBC 4.17 m/uL (4.30-5.90); WBC 13.5 k/uL (3.8-10.6)
[2022-10-19 10:14] LABS: ALT 26 U/L (4-49); AST 37 U/L (17-59); African American GFR (CKD) >90 (>60 ml/min/1.73 sqM); Albumin 3.6 g/dL (3.5-5.0); Alkaline Phosphatase 71 U/L (38-126); Anion Gap 6 mmol/L; Blood Urea Nitrogen 9 mg/dL (9-20); Carbon Dioxide 31 mmol/L (22-30); Chloride 101 mmol/L (98-107); Glucose 92 mg/dL (74-99); Non-African American GFR(CKD) >90 (>60 ml/min/1.73 sqM); Potassium 3.7 mmol/L (3.5-5.1); Sodium 138 mmol/L (137-145); Total Bilirubin 0.3 mg/dL (0.2-1.3); Total Protein 6.1 g/dL (6.3-8.2)
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
[2022-10-19] MEDS: NICOTINE GUM (POLACRILEX) 2 MG GUM BUCCAL PRN ×2 (17:37→19:15)
[2022-10-19 18:28] LABS: Chol/HDL Ratio 3.88 Ratio; LDL Cholesterol,Calculated 94.7 mg/dL (0.0-131.0)
[2022-10-19] MEDS: haloperidoL 5 MG TAB PO PRN (19:13)
[2022-10-19] MEDS: ACETAMINOPHEN TAB 325 MG TAB PO PRN (23:53)
[2022-10-20] MEDS: LORazepam 1 MG TAB PO PRN ×4 (00:02→19:47)
[2022-10-20 00:33] VITALS: RESP 16; TEMP 97.4
[2022-10-20] MEDS: IBUPROFEN 400 MG TAB PO PRN ×3 (03:32→15:55)
[2022-10-20] MEDS: HYDROcodone/APAP 5-325MG 1 EACH TAB PO PRN ×4 (07:50→21:36)
[2022-10-20] MEDS: NICOTINE 14MG/24HR PATCH TRANSDERM SCH (08:25)
[2022-10-20] MEDS: hydrOXYzine pamoate 25 MG CAP PO SCH ×3 (08:25→20:09)
[2022-10-20] MEDS: cloNIDine HCL 0.2 MG TAB PO SCH ×3 (08:25→20:09)
[2022-10-20] MEDS: risperiDONE 2 MG TAB PO SCH ×3 (08:25→20:10)
[2022-10-20] MEDS: haloperidoL 5 MG TAB PO PRN ×2 (10:06→20:39)
[2022-10-20] MEDS ORDERED: PALIPERIDONE IM 234 MG/1.5 ML SYG IM STA (12:02)
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
[2022-10-20] MEDS: NICOTINE GUM (POLACRILEX) 2 MG GUM BUCCAL PRN ×3 (13:39→18:50)
[2022-10-20] MEDS: ACETAMINOPHEN TAB 325 MG TAB PO PRN (19:17)
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
[2022-10-21] MEDS: NICOTINE GUM (POLACRILEX) 2 MG GUM BUCCAL PRN ×2 (01:11→12:20)
[2022-10-21] MEDS: HYDROcodone/APAP 5-325MG 1 EACH TAB PO PRN ×3 (01:52→10:28)
[2022-10-21] MEDS: IBUPROFEN 400 MG TAB PO PRN ×2 (02:50→08:10)
[2022-10-21] MEDS: NICOTINE 14MG/24HR PATCH TRANSDERM SCH (08:09)
[2022-10-21] MEDS: hydrOXYzine pamoate 25 MG CAP PO SCH (08:09)
[2022-10-21] MEDS: cloNIDine HCL 0.2 MG TAB PO SCH (08:10)
[2022-10-21] MEDS: risperiDONE 2 MG TAB PO SCH (08:10)
[2022-10-21 08:13] VITALS: BP 138/73; PULSE 83
[2022-10-21] MEDS: LORazepam 1 MG TAB PO PRN (08:49)
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
[2022-10-21] MEDS: ACETAMINOPHEN TAB 325 MG TAB PO PRN (12:21)
== END 2022-10-21 13:08 | disposition home or self-care (01) | DRG 885 ==
LOC: EC 18:29 → 3MHU 21:23
PROVIDERS: ADMIT Psychiatry & Neurology Psychiatry; ATTEND Psychiatry & Neurology Psychiatry
DX: F31.9 Bipolar disorder, unspecified (principal); R45.851 Suicidal ideations; R45.850 Homicidal ideations; Z20.822 Contact with and (suspected) exposure to COVID-19; F60.2 Antisocial personality disorder; F10.11 Alcohol abuse, in remission; I10 Essential (primary) hypertension; S60.519A Abrasion of unspecified hand, initial encounter; S62.318A Displaced fracture of base of other metacarpal bone, initial encounter for closed fracture; F12.10 Cannabis abuse, uncomplicated; F17.290 Nicotine dependence, other tobacco product, uncomplicated; F41.9 Anxiety disorder, unspecified; F60.89 Other specific personality disorders; M79.7 Fibromyalgia; Z63.72 Alcoholism and drug addiction in family; Z81.1 Family history of alcohol abuse and dependence; Z81.8 Family history of other mental and behavioral disorders; Z91.14 Patient's other noncompliance with medication regimen; Z71.51 Drug abuse counseling and surveillance of drug abuser; X58.XXXA Exposure to other specified factors, initial encounter; Z71.6 Tobacco abuse counseling
CPT/HCPCS: 80053; 80061; 80306; 82075; 83036; 84443; 85025; 87635; 90471; 90715; 99285

== ENCOUNTER 2022-10-24 23:11 | Inpatient (IN) | payer MEDICAID, OTHER ==
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
[2022-10-25] MEDS ORDERED: LORazepam 2 MG/ML INJ IM STA ×3 (00:53→16:41)
[2022-10-25] MEDS ORDERED: diphenhydrAMINE 50 MG/ML 1 ML VIAL IM STA (00:55)
[2022-10-25] MEDS ORDERED: HALOPERIDOL LACTATE 5 MG/ML 1 ML VIAL IM STA (00:58)
[2022-10-25 07:26] LABS: Appearance,Urine Clear (Clear); Bilirubin,Urine Negative (Negative); Blood,Urine Negative (Negative); Color,Urine Colorless; Glucose,Urine (UA) Negative (Negative); Ketones,Urine Negative (Negative); Leukocyte Esterase,Urine Negative (Negative); Nitrite,Urine Negative (Negative); Protein,Urine Negative (Negative); Specific Gravity,Urine 1.004 (1.001-1.035); Urobilinogen,Urine <2.0 mg/dL (<2.0)
[2022-10-25 07:37] LABS: Amphetamine Screen,Urine Not Detected (NotDetected); Barbiturate Screen,Urine Not Detected (NotDetected); Benzodiazepines Screen,Urine Not Detected (NotDetected); Cocaine Screen,Urine Not Detected (NotDetected); Methadone Screen, Urine Not Detected (NotDetected); Opiate Screen,Urine Not Detected (NotDetected); Oxycodone Screen, Urine Not Detected (NotDetected); Phencyclidine Screen,Urine Not Detected (NotDetected); Tricyclic Antidepressant,Urine Not Detected (NotDetected); Urn Cannabinoid Scrn Detected (NotDetected)
[2022-10-25] MEDS ORDERED: ZIPRASIDONE 20 MG VIAL IM STA ×2 (07:58→16:41)
[2022-10-25] MEDS ORDERED: PANTOPRAZOLE 40 MG TABLET PO STA (11:24)
[2022-10-25] MEDS ORDERED: IBUPROFEN 600 MG TAB PO STA ×2 (14:10→20:49)
[2022-10-25] MEDS ORDERED: NICOTINE 21MG/24HR PATCH TRANSDERM STA (14:10)
[2022-10-25] MEDS ORDERED: OLANZapine 10 MG VIAL IM STA (14:11)
[2022-10-25] MEDS ORDERED: LORazepam 1 MG TAB PO STA (20:47)
[2022-10-25] MEDS ORDERED: BACITRACIN OINT 1 EACH PACKET TOPICAL ONE (20:50)
[2022-10-25] MEDS: cloNIDine HCL 0.2 MG TAB PO SCH (22:43)
[2022-10-25] MEDS: hydrOXYzine pamoate 25 MG CAP PO SCH (22:43)
[2022-10-25] MEDS ORDERED: diphenhydrAMINE 50 MG CAP PO STA (22:49)
[2022-10-25] MEDS ORDERED: haloperidoL 5 MG TAB PO STA (22:49)
[2022-10-25] MEDS ORDERED: AMOXICILLIN 500 MG CAP PO STA (22:49)
[2022-10-25] MEDS: NICOTINE 14MG/24HR PATCH TRANSDERM PRN (23:14)
[2022-10-25] MEDS: NICOTINE GUM (POLACRILEX) 2 MG GUM BUCCAL PRN (23:14)
[2022-10-26] MEDS: ACETAMINOPHEN TAB 500 MG TAB PO PRN ×4 (01:14→21:56)
[2022-10-26] MEDS: chlorproMAZINE 25 MG/ML 2 ML AMP IM PRN ×3 (01:14→20:28)
[2022-10-26] MEDS: IBUPROFEN 400 MG TAB PO PRN ×3 (03:59→16:01)
[2022-10-26] MEDS ORDERED: HYDROcodone/APAP 10-325MG 1 EACH TAB PO ONE (04:09)
[2022-10-26] MEDS ORDERED: LORazepam 1 MG TAB PO STA (04:21)
[2022-10-26] MEDS: LORazepam 0.5 MG TAB PO PRN ×2 (07:45→19:48)
[2022-10-26] MEDS: ATORVASTATIN 20 MG TAB PO SCH ×2 (08:15→08:17)
[2022-10-26] MEDS: PANTOPRAZOLE 40 MG TABLET PO SCH ×2 (08:16→09:54)
[2022-10-26] MEDS: cloNIDine HCL 0.2 MG TAB PO SCH ×3 (08:18→21:55)
[2022-10-26] MEDS: NICOTINE 14MG/24HR PATCH TRANSDERM PRN ×3 (08:18→19:48)
[2022-10-26] MEDS: hydrOXYzine pamoate 25 MG CAP PO SCH ×3 (08:25→21:55)
[2022-10-26] MEDS: CHOLECALCIFEROL 125 MCG (5000 IU) TABLET PO SCH (08:25)
[2022-10-26] MEDS: risperiDONE 2 MG TAB PO SCH ×2 (08:55→21:55)
[2022-10-26] MEDS: NICOTINE GUM (POLACRILEX) 2 MG GUM BUCCAL PRN ×2 (10:43→19:02)
--- NOTE | 2022-10-26 22:06 | XR ---
EXAMINATION TYPE: XR hand complete RT DATE OF EXAM: 10/26/2022 COMPARISON: 10/18/2022 HISTORY: Pain TECHNIQUE: 3 views FINDINGS: There is nondisplaced intra-articular comminuted chip fracture of the base of the fifth met acarpal. There is deformity of the distal fifth metacarpal consistent with old healed fracture. The f ingers are intact. Carpal bones are intact. IMPRESSION: Intra-articular fracture of the base of the fifth metacarpal which is slightly increased in displacement compared to old exam. No evidence of a new fracture.
[2022-10-26] MEDS ORDERED: LORazepam 2 MG/ML INJ IM STA (22:34)
[2022-10-26] MEDS ORDERED: HALOPERIDOL LACTATE 5 MG/ML 1 ML VIAL IM STA (22:34)
[2022-10-26] MEDS ORDERED: diphenhydrAMINE 50 MG/ML 1 ML VIAL IM STA (22:34)
[2022-10-27] MEDS: IBUPROFEN 400 MG TAB PO PRN ×4 (00:55→21:38)
[2022-10-27] MEDS: ACETAMINOPHEN TAB 500 MG TAB PO PRN ×4 (04:12→23:30)
[2022-10-27] MEDS: cloNIDine HCL 0.2 MG TAB PO SCH ×3 (08:27→19:42)
[2022-10-27] MEDS: LORazepam 0.5 MG TAB PO PRN (08:27)
[2022-10-27] MEDS: hydrOXYzine pamoate 25 MG CAP PO SCH ×2 (08:28→15:33)
[2022-10-27] MEDS: CHOLECALCIFEROL 125 MCG (5000 IU) TABLET PO SCH (08:28)
[2022-10-27] MEDS: ATORVASTATIN 20 MG TAB PO SCH (08:28)
[2022-10-27] MEDS: PANTOPRAZOLE 40 MG TABLET PO SCH (08:29)
[2022-10-27] MEDS: chlorproMAZINE 25 MG/ML 2 ML AMP IM PRN ×2 (08:50→15:35)
[2022-10-27] MEDS ORDERED: risperiDONE 2 MG TAB PO SCH (09:00)
[2022-10-27] MEDS ORDERED: PALIPERIDONE IM 156 MG/ML SYG IM ONE (09:00)
[2022-10-27] MEDS: NICOTINE GUM (POLACRILEX) 2 MG GUM BUCCAL PRN ×3 (11:09→17:42)
[2022-10-27] MEDS ORDERED: QUEtiapine 25 MG TAB PO STA (12:56)
[2022-10-27] MEDS: NICOTINE 14MG/24HR PATCH TRANSDERM PRN (17:42)
[2022-10-27] MEDS ORDERED: HALOPERIDOL LACTATE 5 MG/ML 1 ML VIAL IM PRN (17:47)
[2022-10-27] MEDS ORDERED: MAG HYDROX/AL HYDROX/SIMETH 355 ML BOTTLE PO PRN (17:47)
[2022-10-27] MEDS ORDERED: MAGNESIUM HYDROXIDE 2,400 MG/10 ML CUP PO PRN (17:47)
[2022-10-27] MEDS ORDERED: LORazepam 2 MG/ML INJ IM PRN (17:49)
[2022-10-27] MEDS: LORazepam 1 MG TAB PO PRN (18:34)
[2022-10-27] MEDS: haloperidoL 5 MG TAB PO PRN (19:42)
[2022-10-28] MEDS: LORazepam 1 MG TAB PO PRN ×4 (00:11→18:33)
[2022-10-28] MEDS: haloperidoL 5 MG TAB PO PRN ×4 (00:12→20:08)
[2022-10-28 00:49] VITALS: TEMP 97.9
[2022-10-28] MEDS: NICOTINE GUM (POLACRILEX) 2 MG GUM BUCCAL PRN ×5 (01:22→18:58)
[2022-10-28] MEDS: PANTOPRAZOLE 40 MG TABLET PO SCH (03:34)
[2022-10-28] MEDS: IBUPROFEN 400 MG TAB PO PRN ×3 (03:34→20:09)
[2022-10-28] MEDS: ACETAMINOPHEN TAB 500 MG TAB PO PRN ×2 (05:48→16:02)
[2022-10-28] MEDS: CHOLECALCIFEROL 125 MCG (5000 IU) TABLET PO SCH (08:25)
[2022-10-28] MEDS: ATORVASTATIN 20 MG TAB PO SCH (08:25)
[2022-10-28] MEDS: cloNIDine HCL 0.2 MG TAB PO SCH ×3 (08:25→20:08)
[2022-10-28] MEDS: NICOTINE 14MG/24HR PATCH TRANSDERM PRN (08:25)
[2022-10-28 11:19] LABS: Basophils % (A) 0 %; Eosinophils # (A) 0.1 k/uL (0-0.7); Eosinophils % (A) 1 %; HCT 40.4 % (39.0-53.0); HGB 13.5 gm/dL (13.0-17.5); Lymphocytes # (A) 2.3 k/uL (1.0-4.8); Lymphocytes % (A) 18 %; MCH 31.4 pg (25.0-35.0); MCHC 33.4 g/dL (31.0-37.0); MCV 93.8 fL (80.0-100.0); Mean Platelet Volume 7.5; Monocytes # (A) 0.7 k/uL (0-1.0); Monocytes % (A) 6 %; Neutrophils # (A) 9.7 k/uL (1.3-7.7); Neutrophils % (A) 74 %; Platelet Count 415 k/uL (150-450); RBC 4.31 m/uL (4.30-5.90); RDW 13.7 % (11.5-15.5); WBC 13.1 k/uL (3.8-10.6)
[2022-10-28 11:42] LABS: African American GFR (CKD) >90 (>60 ml/min/1.73 sqM); Anion Gap 7 mmol/L; Blood Urea Nitrogen 7 mg/dL (9-20); Calcium 9.8 mg/dL (8.4-10.2); Carbon Dioxide 25 mmol/L (22-30); Chloride 105 mmol/L (98-107); Glucose 101 mg/dL (74-99); Non-African American GFR(CKD) >90 (>60 ml/min/1.73 sqM); Potassium 5.2 mmol/L (3.5-5.1); Sodium 137 mmol/L (137-145)
[2022-10-28] MEDS ORDERED: SODIUM ZIRCONIUM CYCLOSILICATE 10 GM PACKET PO ONE (15:11)
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
[2022-10-29] MEDS: LORazepam 1 MG TAB PO PRN ×2 (02:06→10:07)
[2022-10-29] MEDS: NICOTINE GUM (POLACRILEX) 2 MG GUM BUCCAL PRN ×2 (03:08→07:59)
[2022-10-29] MEDS: IBUPROFEN 400 MG TAB PO PRN ×2 (03:08→10:07)
[2022-10-29] MEDS: ACETAMINOPHEN TAB 500 MG TAB PO PRN ×2 (06:05→12:58)
[2022-10-29 06:07] VITALS: BP 147/79; PULSE 94; RESP 18
[2022-10-29] MEDS: cloNIDine HCL 0.2 MG TAB PO SCH (07:59)
[2022-10-29] MEDS: haloperidoL 5 MG TAB PO PRN (07:59)
[2022-10-29] MEDS: NICOTINE 14MG/24HR PATCH TRANSDERM PRN (07:59)
[2022-10-29] MEDS: PANTOPRAZOLE 40 MG TABLET PO SCH (07:59)
[2022-10-29] MEDS: CHOLECALCIFEROL 125 MCG (5000 IU) TABLET PO SCH (07:59)
[2022-10-29] MEDS: ATORVASTATIN 20 MG TAB PO SCH (10:40)
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
[2022-11-17] MEDS ORDERED: PALIPERIDONE IM 234 MG/1.5 ML SYG IM ONE (09:00)
[2022-11-17] MEDS ORDERED: PALIPERIDONE IM 156 MG/ML SYG IM ONE (09:00)
== END 2022-10-29 14:30 | disposition home or self-care (01) | DRG 885 ==
LOC: EC 23:11 → 3MHU 10-27 16:13
PROVIDERS: ADMIT Psychiatry & Neurology Psychiatry; ATTEND Psychiatry & Neurology Psychiatry
DX: F25.9 Schizoaffective disorder, unspecified (principal); R45.851 Suicidal ideations; M79.7 Fibromyalgia; F17.290 Nicotine dependence, other tobacco product, uncomplicated; F10.11 Alcohol abuse, in remission; I10 Essential (primary) hypertension; R45.850 Homicidal ideations; S62.306A Unspecified fracture of fifth metacarpal bone, right hand, initial encounter for closed fracture; E87.5 Hyperkalemia; E78.5 Hyperlipidemia, unspecified; W22.09XA Striking against other stationary object, initial encounter; Z20.822 Contact with and (suspected) exposure to COVID-19; Z79.899 Other long term (current) drug therapy; Z91.030 Bee allergy status; Z91.14 Patient's other noncompliance with medication regimen; Z63.8 Other specified problems related to primary support group
CPT/HCPCS: 80048; 80306; 81003; 82075; 83735; 84132; 85025; 87635; 96372; 99285

== ENCOUNTER 2022-11-02 18:11 | Emergency (ER) | payer OTHER ==
[2022-11-02 18:35] VITALS: TEMP 98.5
--- NOTE | 2022-11-02 19:39 | ED ---
General Adult HPI - General Chief complaint: Psychiatric Symptoms Stated complaint: Mental Health Time Seen by Provider: 11/02/22 19:15 Source: patient Mode of arrival: ambulatory Limitations: no limitations - History of Present Illness Initial comments: Dictation was produced using [employer] dictation software. please excuse any grammatical, word or spelling errors. Chief Complaint: 37-year-old male presents emergency department for suicidal homicidal ideation History of Present Illness: Patient is a 37-year-old male. His history of psychiatric disease been admitted to psych facility in the recent past. Patient states that he is here for suicidal homicidal ideation. His likely needs to be readmitted to psych unit. Patient denies any visual auditory hallucinations. Doesn't have a specific plan. Denies any medical complaints The ROS documented in this emergency department record has been reviewed and confirmed by me. Those systems with pertinent positive or negative responses have been documented in the HPI. All other systems are other negative and/or noncontributory. PHYSICAL EXAM: General Impression: Alert and oriented x3, not in acute distress HEENT: Normocephalic atraumatic, extra-ocular movements intact, pupils equal and reactive to light bilaterally, mucous membranes moist. Cardiovascular: Heart regular rate and rhythm Chest: Able to complete full sentences, no retractions, no tachypnea Abdomen: abdomen soft, non-tender, non-distended, no organomegaly Musculoskeletal: Pulses present and equal in all extremities, no peripheral edema Motor: no focal deficits noted Neurological: CN II-XII grossly intact, no focal motor or sensory deficits noted Skin: Intact with no visualized rashes Psych: Normal affect and mood ED course: 37-year-old male presents emergency department for psychiatric evaluation. Vital signs on arrival are within acceptable limits. Physical examination is benign. Patient medically cleared for EPS evaluation. Nursing notes and chart review was performed Patient evaluated by EPS. Recommended discharge with outpatient follow-up. - Related Data Home Medications Medication Instructions Recorded Confirmed Atorvastatin [Lipitor] 20 mg PO DIRECTED 10/18/22 10/25/22 Cholecalciferol [Vitamin D3 (125 125 mcg PO DAILY 10/18/22 10/25/22 Mcg = 5000 Iu)] Omeprazole 20 mg PO DIRECTED 10/18/22 10/25/22 Acetaminophen Tab [Tylenol] 1,000 mg PO Q6HR PRN 10/25/22 10/25/22 Previous Rx's Medication Instructions Recorded Ibuprofen [Motrin] 400 mg PO Q6HR PRN 14 Days tab 10/21/22 lisinopriL [Zestril] 2.5 mg PO DAILY 30 Days tab 10/21/22 Paliperidone IM [Invega Sustenna] 156 mg IM QMONTHLY #1 ml 10/29/22 cloNIDine HCL [Catapres] 0.2 mg PO TID 30 Days tab 10/29/22 risperiDONE [RisperDAL] 2 mg PO BID 30 Days tab 10/29/22 Allergies Allergy/AdvReac Type Severity Reaction Status Date / Time bee pollen Allergy Unknown Verified 11/02/22 18:35 venom-honey bee Allergy Anaphylaxis Verified 11/02/22 18:35 [bee venom (honey bee)] Review of Systems ROS Statement: Those systems with pertinent positive or pertinent negative responses have been documented in the HPI. ROS Other: All systems not noted in ROS Statement are negative. Past Medical History Past Medical History: Fibromyalgia, Hypertension Additional Past Medical History / Comment(s): carpal tunnel, back pain History of Any Multi-Drug Resistant Organisms: None Reported Past Surgical History: No Surgical Hx Reported Past Anesthesia/Blood Transfusion Reactions: No Reported Reaction Past Psychological History: Anxiety, Bipolar, Depression, Schizoaffective Disorder Smoking Status: Current every day smoker, Vaper Past Alcohol Use History: Abuse, Daily Past Drug Use History: Marijuana - Past Family History family Family Medical History: Hypertension General Exam Limitations: no limitations Course Vital Signs 11/02/22 18:32 Temperature 98.5 F Pulse Rate 106 H Respiratory 22 Rate Blood Pressure 155/100 O2 Sat by Pulse 99 Oximetry Disposition Clinical Impression: Psychiatric complaint Disposition: HOME SELF-CARE Condition: Good Instructions (If sedation given, give patient instructions): Medical Clearance for Psychiatric Care (ED) Is patient prescribed a controlled substance at d/c from ED?: No Referrals: Salima Britton MD [Primary Care Provider] - 1-2 days Time of Disposition: 21:55
[2022-11-02] MEDS ORDERED: LORazepam 1 MG TAB PO STA (21:46)
[2022-11-02 22:11] VITALS: BP 124/80; PULSE 94; RESP 16
== END 2022-11-02 22:25 | disposition home or self-care (01) ==
LOC: EC 18:11
DX: F99 Mental disorder, not otherwise specified (principal); I10 Essential (primary) hypertension; F41.9 Anxiety disorder, unspecified; F31.9 Bipolar disorder, unspecified; F17.290 Nicotine dependence, other tobacco product, uncomplicated; F12.90 Cannabis use, unspecified, uncomplicated; Z91.030 Bee allergy status; Z79.899 Other long term (current) drug therapy
CPT/HCPCS: 82075; 99284

== ENCOUNTER 2022-11-05 13:32 | Inpatient (IN) | payer MEDICAID, OTHER ==
[2022-11-05] MEDS ORDERED: LORazepam 1 MG TAB PO STA ×2 (15:08→17:34)
--- NOTE | 2022-11-05 15:13 | ED ---
Psych HPI - General Chief Complaint: Psychiatric Symptoms Stated Complaint: Mental Health Time Seen by Provider: 11/05/22 14:59 Source: police Mode of arrival: ambulatory - History of Present Illness Initial Comments: Patient's 37-year-old man brought to have evaluation for worsening of his underlying psychiatric symptoms. It is reported that the patient was making threatening statements. Complaint: other -: days(s) Associated Psychiatric Symptoms: racing thoughts History of same: Yes Quality: constant Improves With: none Worsens With: none Associated Symptoms: denies other symptoms - Related Data Home Medications Medication Instructions Recorded Confirmed Atorvastatin [Lipitor] 20 mg PO DIRECTED 10/18/22 11/08/22 Cholecalciferol [Vitamin D3 (125 125 mcg PO DAILY 10/18/22 11/08/22 Mcg = 5000 Iu)] Omeprazole 20 mg PO DIRECTED 10/18/22 11/08/22 Acetaminophen Tab [Tylenol] 1,000 mg PO Q6HR PRN 10/25/22 11/08/22 Ibuprofen [Motrin] 400 mg PO Q6H PRN 11/05/22 11/08/22 Paliperidone IM [Invega Sustenna] 156 mg IM Q28D 11/05/22 11/08/22 Previous Rx's Medication Instructions Recorded lisinopriL [Zestril] 2.5 mg PO DAILY 30 Days tab 10/21/22 cloNIDine HCL [Catapres] 0.2 mg PO TID 30 Days tab 10/29/22 risperiDONE [RisperDAL] 2 mg PO BID 30 Days tab 10/29/22 Allergies Allergy/AdvReac Type Severity Reaction Status Date / Time bee pollen Allergy Unknown Verified 11/08/22 15:36 venom-honey bee Allergy Anaphylaxis Verified 11/08/22 15:36 [bee venom (honey bee)] Review of Systems ROS Statement: Those systems with pertinent positive or pertinent negative responses have been documented in the HPI. ROS Other: All systems not noted in ROS Statement are negative. Constitutional: Denies: fever, chills Respiratory: Denies: cough, dyspnea Cardiovascular: Denies: chest pain, palpitations Gastrointestinal: Denies: abdominal pain, vomiting Musculoskeletal: Denies: back pain Neurological: Denies: headache Psychiatric: Reports: homicidal thoughts, suicidal thoughts Past Medical History Past Medical History: Fibromyalgia, Hypertension Additional Past Medical History / Comment(s): carpal tunnel, back pain History of Any Multi-Drug Resistant Organisms: None Reported Past Surgical History: No Surgical Hx Reported Past Anesthesia/Blood Transfusion Reactions: No Reported Reaction Past Psychological History: Anxiety, Bipolar, Depression, Schizoaffective Disorder Smoking Status: Current every day smoker, Vaper Past Alcohol Use History: Abuse, Daily Past Drug Use History: Marijuana - Past Family History family Family Medical History: Hypertension General Exam General appearance: alert, appears intoxicated, anxious Head exam: Present: atraumatic, normocephalic Eye exam: Present: normal appearance. Absent: scleral icterus, conjunctival injection Neck exam: Present: normal inspection, full ROM Respiratory exam: Present: normal lung sounds bilaterally. Absent: respiratory distress, wheezes, rales, rhonchi, stridor Cardiovascular Exam: Present: regular rate, normal rhythm, normal heart sounds. Absent: systolic murmur, diastolic murmur, rubs, gallop GI/Abdominal exam: Present: soft. Absent: distended, tenderness, guarding, rebound, rigid, mass Extremities exam: Present: normal inspection, normal capillary refill. Absent: pedal edema, calf tenderness Back exam: Present: normal inspection. Absent: CVA tenderness (R), CVA tenderness (L) Neurological exam: Present: alert Psychiatric exam: Present: agitated, manic. Absent: flat affect Skin exam: Present: warm, dry, intact, normal color. Absent: rash Course Vital Signs 11/05/22 14:06 Temperature 97 F L Pulse Rate 110 H Respiratory 20 Rate Blood Pressure 138/90 Medical Decision Making - Lab Data Result diagrams: 11/06/22 15:04 11/06/22 15:04 Lab Results 11/05/22 11/05/22 11/05/22 Range/Units 15:12 15:12 17:01 Urine Color Colorless Urine Appearance Clear (Clear) Urine pH 6.5 (5.0-8.0) Ur Specific [place] 1.002 (1.001-1.035) Urine Protein Negative (Negative) Urine Glucose (UA) Negative (Negative) Urine Ketones Negative (Negative) Urine Blood Negative (Negative) Urine Nitrite Negative (Negative) Urine Bilirubin Negative (Negative) Urine Urobilinogen <2.0 (<2.0) mg/dL Ur Leukocyte Esterase Negative (Negative) Urine Opiates Screen Negative (Negative) Urine Methadone Screen Negative (Negative) Ur Propoxyphene Screen Negative (Negative) Urine Barbiturates Negative (Negative) Ur Phencyclidine Scrn Negative (Negative) Ur Amphetamine Screen Negative (Negative) U Benzodiazepines Scrn Negative (Negative) Urine Cocaine Screen Negative (Negative) U Cannabinoids Screen Positive A (Negative) Urine Alcohol Negative (Negative) Coronavirus (PCR) Not Detected (Not Detectd) Disposition Clinical Impression: Acute psychosis Disposition: TRANSFER TO PSYCH HOSP/UNIT Condition: Fair Is patient prescribed a controlled substance at d/c from ED?: No
[2022-11-05] MEDS ORDERED: ACETAMINOPHEN TAB 325 MG TAB PO STA (15:23)
[2022-11-05] MEDS ORDERED: NICOTINE 21MG/24HR PATCH TRANSDERM STA (15:23)
[2022-11-05] MEDS ORDERED: cloNIDine HCL 0.2 MG TAB PO STA (15:43)
[2022-11-05] MEDS ORDERED: IBUPROFEN 800 MG TAB PO STA (17:34)
[2022-11-05] MEDS ORDERED: chlorproMAZINE 25 MG TAB PO PRN (18:14)
[2022-11-05] MEDS ORDERED: chlorproMAZINE 25 MG/ML 2 ML AMP IM PRN (18:14)
[2022-11-05 18:31] LABS: Appearance,Urine Clear (Clear); Bilirubin,Urine Negative (Negative); Blood,Urine Negative (Negative); Color,Urine Colorless; Glucose,Urine (UA) Negative (Negative); Ketones,Urine Negative (Negative); Leukocyte Esterase,Urine Negative (Negative); Nitrite,Urine Negative (Negative); PH, Urine 6.5 (5.0-8.0); Protein,Urine Negative (Negative); Specific Gravity,Urine 1.002 (1.001-1.035); Urobilinogen,Urine <2.0 mg/dL (<2.0)
[2022-11-05] MEDS: ATORVASTATIN 20 MG TAB PO SCH (19:00)
[2022-11-05] MEDS: hydrOXYzine pamoate 25 MG CAP PO SCH (20:28)
[2022-11-05] MEDS: cloNIDine HCL 0.2 MG TAB PO SCH (20:29)
[2022-11-05] MEDS: LORazepam 0.5 MG TAB PO PRN (20:31)
[2022-11-05] MEDS: ACETAMINOPHEN TAB 325 MG TAB PO PRN (20:55)
[2022-11-05] MEDS: IBUPROFEN 400 MG TAB PO PRN (22:21)
[2022-11-05 23:46] LABS: Urine Alcohol Negative (Negative); Urine Barbiturate Negative (Negative); Urine Cocaine Negative (Negative); Urine Methadone Negative (Negative); Urine Opiates Negative (Negative); Urine Phencyclidine Negative (Negative)
[2022-11-06] MEDS: NICOTINE GUM (POLACRILEX) 2 MG GUM BUCCAL PRN ×5 (04:19→20:53)
[2022-11-06] MEDS: ACETAMINOPHEN TAB 325 MG TAB PO PRN ×3 (04:19→16:02)
[2022-11-06] MEDS: LORazepam 0.5 MG TAB PO PRN ×3 (06:04→22:09)
[2022-11-06] MEDS: IBUPROFEN 400 MG TAB PO PRN ×3 (06:09→21:12)
[2022-11-06] MEDS: ATORVASTATIN 20 MG TAB PO SCH (08:39)
[2022-11-06] MEDS: cloNIDine HCL 0.2 MG TAB PO SCH ×3 (08:42→20:52)
[2022-11-06] MEDS: PANTOPRAZOLE 40 MG TABLET PO SCH (08:42)
[2022-11-06] MEDS: hydrOXYzine pamoate 25 MG CAP PO SCH ×3 (08:42→20:51)
[2022-11-06] MEDS: NICOTINE 21MG/24HR PATCH TRANSDERM SCH (08:42)
[2022-11-06] MEDS: MAG HYDROX/AL HYDROX/SIMETH 30 ML CUP PO PRN (10:57)
[2022-11-06] MEDS: MAGNESIUM HYDROXIDE 2,400 MG/10 ML CUP PO PRN (12:10)
[2022-11-06] MEDS ORDERED: chlorproMAZINE 100 MG TAB PO PRN (14:16)
[2022-11-06] MEDS ORDERED: traZODone HCL 100 MG TAB PO PRN (14:18)
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
[2022-11-06] MEDS ORDERED: chlorproMAZINE 25 MG/ML 2 ML AMP IM ONE (14:53)
[2022-11-06 15:24] LABS: Basophils # (A) 0.1 k/uL (0-0.2); Basophils % (A) 0 %; Eosinophils # (A) 0.2 k/uL (0-0.7); Eosinophils % (A) 1 %; HGB 13.1 gm/dL (13.0-17.5); Lymphocytes # (A) 2.6 k/uL (1.0-4.8); Lymphocytes % (A) 16 %; MCH 31.3 pg (25.0-35.0); MCHC 33.5 g/dL (31.0-37.0); MCV 93.2 fL (80.0-100.0); Mean Platelet Volume 7.5; Monocytes # (A) 0.9 k/uL (0-1.0); Monocytes % (A) 6 %; Neutrophils # (A) 12.2 k/uL (1.3-7.7); Neutrophils % (A) 75 %; Platelet Count 525 k/uL (150-450); RBC 4.18 m/uL (4.30-5.90); RDW 13.6 % (11.5-15.5); WBC 16.1 k/uL (3.8-10.6)
[2022-11-06 15:50] LABS: ALT 30 U/L (4-49); AST 29 U/L (17-59); African American GFR (CKD) >90 (>60 ml/min/1.73 sqM); Albumin 4.3 g/dL (3.5-5.0); Alkaline Phosphatase 71 U/L (38-126); Anion Gap 7 mmol/L; Blood Urea Nitrogen 9 mg/dL (9-20); Calcium 9.6 mg/dL (8.4-10.2); Carbon Dioxide 28 mmol/L (22-30); Chloride 101 mmol/L (98-107); Glucose 114 mg/dL (74-99); Non-African American GFR(CKD) >90 (>60 ml/min/1.73 sqM); Potassium 4.6 mmol/L (3.5-5.1); Sodium 136 mmol/L (137-145); Total Bilirubin 0.3 mg/dL (0.2-1.3); Total Protein 7.1 g/dL (6.3-8.2)
--- NOTE | 2022-11-06 16:23 | P.MDCNMH ---
History of Present Illness H&P Date: 11/06/22 This is a 37-year-old male who was recently brought to the emergency department for psychiatric evaluation. Patient has been making threatening homicidal statements to his stepfather and family members. Patient was here and recently discharged a week ago on [facility] [address] and has yet to follow-up with [facility]. Patient also has not followed up with his primary care provider Dr. Wyman. Patient with a past medical history of fibromyalgia and hypertension, anxiety, bipolar depression, schizoaffective disorder. Patient admits to smoking cigarettes and vaping along with 2-3 joints of marijuana daily admits to drinking daily. Patient has been lashing out and having increasing anger and irritability with bizarre behavior and was brought here involuntarily for psychiatric admission. Patient had urinalysis and UDS done which was positive for cannabinoids and Covid testing was negative. Recommend labs that are ordered and pending. On exam patient requesting pain medication stronger than Motrin and Tylenol as he states those are "wrecking his stomach" and repeatedly asking for Rugby for his right hand pain. Patient has a recent past medical history of a fracture of the fifth metatarsal and was seen by orthopedics and has yet to follow-up. Patient also continues to repeatedly punch objects all around the house including dwyer with that same hand. Patient denies chest pain or shortness of breath reports eating with no reports of nausea or vomiting. Patient reports he's had poor sleep and needs to get back on his medications although selective and asking repeatedly for Risperdal. Home medications have been reviewed and resumed. Review Of Systems: Constitutional: No fever, no chills, no night sweats. No weight change. No weakness, fatigue or lethargy. No daytime sleepiness. EENT: No headache. No blurred vision or double vision, no loss of vision. No loss of Hearing, no ringing in the ears, no dizziness. No nasal drainage or congestion. No epistaxis. No sore throat. Lungs: No shortness of breath, cough, no sputum production. No wheezing. Cardiovascular: No chest pain, no lower extremity edema. No palpitations. No paroxysmal nocturnal dyspnea. No orthopnea. No lightheadedness or dizziness. No syncopal episodes. Abdominal: No abdominal pain. No nausea, vomiting. No diarrhea. No constipation. No bloody or tarry stools.. No loss of appetite. Genitourinary: No dysuria, increased frequency, urgency. No urinary retention. Musculoskeletal: No myalgias. No muscle weakness, no gait dysfunction, no frequent falls. No back pain. No neck pain. Reports right hand pain Integumentary: No wounds, no lesions. No rash or pruritus. No unusual bruising. No change in hair or nails. Neurologic: No aphasia. No facial droop. No change in mentation. No head injury. No headache. No paralysis. No paresthesia. Psychiatric: Reports depression. Reports anxiety. Reports mood swings. Reports suicidal ideation and homicidal ideation Endocrine: No abnormal blood sugars. No weight change. No excessive sweating or thirst. No cold intolerance. PHYSICAL EXAMINATION: GENERAL: The patient is alert and oriented x4, Well developed, well nourished. Obese HEENT: Pupils are round and equally reacting to light. EOMI. no scleral icterus. No conjunctival pallor. Normocephalic, atraumatic. No pharyngeal erythema. No thyromegaly. CARDIOVASCULAR: S1 and S2 muffled PULMONARY: diminished breath sounds bilaterally with no wheezing or rhonchi noted. ABDOMEN: soft. Nontender on exam. obese. non-distended, normoactive bowel sounds. No palpable organomegaly. MUSCULOSKELETAL: No joint swelling or deformity. EXTREMITIES: No cyanosis, clubbing, or pedal edema. Right hand evaluated with no obvious deformity swelling or redness noted NEUROLOGICAL: Gross neurological examination did not reveal any focal deficits. Steady gait SKIN: No rashes. Assessment: Suicidal ideation along with homicidal ideation with no plan Leukocytosis, likely reactive with no sign of infection, patient is afebrile denies shortness of breath, denies dysuria Continued ongoing nicotine abuse Continued alcohol abuse Continue THC use History of schizoaffective disorder History of anxiety/bipolar/depression History of fibromyalgia History of hypertension History of fifth metacarpal fracture due to excessively puncturing inanimate objects and was seen by orthopedics GI prophylaxis DVT prophylaxis Full code Plan: Recommend to continue with current medications and management per psychiatric services. Home medications including blood pressure medications have been resumed. Patient reports to being suicidal and homicidal making threatening statements during exam about his stepfather and mother. Patient also making comments of him being the devil. Patient is erratic and not of sound mind and extremely anxious and aggressive appearing on exam. Patient encouraged to attend group therapy and also compliance with medications. Patient reported he will not be going to group and he wants his meds including Rugby for pain. Will continue with Tylenol and/or Motrin as needed. Of note patient white blood count has been chronically elevated on previous admissions and patient is afebrile denies chest pain or shortness of breath. Patient denies dysuria or difficulty with urination or any recent infections. Patient again encouraged to be compliant with psychiatric medications and will need close outpatient follow- up with primary care provider along with [facility]. The impression and plan of care has been dictated by Shreya Sosa, nurse practitioner as directed. Dr. Mary MD I have performed a history and examination and MDM of this patient, discussed the same with the dictator, and agree with the dictator's assessment and plan as written ,documented as a scribe. Based on total visit time, I have performed more than 50% of the visit. Any additional findings or plans will be noted. Past Medical History Past Medical History: Fibromyalgia, Hypertension Additional Past Medical History / Comment(s): carpal tunnel, back pain History of Any Multi-Drug Resistant Organisms: None Reported Past Surgical History: No Surgical Hx Reported Past Anesthesia/Blood Transfusion Reactions: No Reported Reaction Past Psychological History: Anxiety, Bipolar, Depression, Schizoaffective Disorder Smoking Status: Current every day smoker, Vaper Past Alcohol Use History: Abuse, Daily Past Drug Use History: Marijuana - Past Family History family Family Medical History: Hypertension Medications and Allergies Home Medications Medication Instructions Recorded Confirmed Type Atorvastatin [Lipitor] 20 mg PO DIRECTED 10/18/22 11/05/22 History Cholecalciferol [Vitamin D3 (125 125 mcg PO DAILY 10/18/22 11/05/22 History Mcg = 5000 Iu)] Omeprazole 20 mg PO DIRECTED 10/18/22 11/05/22 History lisinopriL [Zestril] 2.5 mg PO DAILY 30 Days tab 10/21/22 11/05/22 Rx Acetaminophen Tab [Tylenol] 1,000 mg PO Q6HR PRN 10/25/22 11/05/22 History cloNIDine HCL [Catapres] 0.2 mg PO TID 30 Days tab 10/29/22 11/05/22 Rx risperiDONE [RisperDAL] 2 mg PO BID 30 Days tab 10/29/22 11/05/22 Rx Ibuprofen [Motrin] 400 mg PO Q6H PRN 11/05/22 11/05/22 History Paliperidone IM [Invega Sustenna] 156 mg IM Q28D 11/05/22 11/05/22 History Allergies Allergy/AdvReac Type Severity Reaction Status Date / Time bee pollen Allergy Unknown Verified 11/05/22 16:05 venom-honey bee Allergy Anaphylaxis Verified 11/05/22 16:05 [bee venom (honey bee)] Physical Exam Vitals: Vital Signs Temp Pulse Resp BP BP Pulse Ox 11/06/22 09:21 92 142/85 11/06/22 06:23 97.1 F L 88 14 134/75 11/05/22 19:04 98.0 F 109 H 16 143/76 98 Cranial Nerve Examination - Cranial Nerves Cranial Nerve I- Olfactory: Intact Cranial Nerve II- Optic: Intact Cranial Nerve III- Oculomotor: Intact Cranial Nerve IV- Trochlear: Intact Cranial Nerve V- Trigeminal: Intact Cranial Nerve - Abducens: Intact Cranial Nerve VII- Facial: Intact Cranial Nerve VIII- Auditory: Intact Cranial Nerve IX- Glossopharyngeal: Intact Cranial Nerve X- Vagus: Intact Cranial Nerve XI- Accessory: Intact Cranial Nerve XII- Hypoglossal: Intact Results CBC & Chem 7: 11/06/22 15:04 11/06/22 15:04 Labs: Abnormal Lab Results - Last 24 Hours (Table) 11/05/22 11/06/22 11/06/22 Range/Units 15:12 15:04 15:04 WBC 16.1 H (3.8-10.6) k/uL RBC 4.18 L (4.30-5.90) m/uL Plt Count 525 H (150-450) k/uL Neutrophils # 12.2 H (1.3-7.7) k/uL Sodium 136 L (137-145) mmol/L Glucose 114 H (74-99) mg/dL U Cannabinoids Screen Positive A (Negative) Assessment and Plan Time with Patient: Less than 30
[2022-11-06] MEDS: haloperidoL 5 MG TAB PO SCH (20:52)
[2022-11-07] MEDS: ACETAMINOPHEN TAB 325 MG TAB PO PRN ×4 (00:17→18:45)
[2022-11-07] MEDS: chlorproMAZINE 100 MG TAB PO PRN ×4 (00:17→23:18)
[2022-11-07] MEDS: NICOTINE GUM (POLACRILEX) 2 MG GUM BUCCAL PRN ×4 (01:29→18:45)
[2022-11-07] MEDS: hydrOXYzine pamoate 25 MG CAP PO SCH ×3 (07:49→19:40)
[2022-11-07] MEDS: IBUPROFEN 400 MG TAB PO PRN ×2 (07:49→16:17)
[2022-11-07] MEDS: PANTOPRAZOLE 40 MG TABLET PO SCH (07:50)
[2022-11-07] MEDS: NICOTINE 21MG/24HR PATCH TRANSDERM SCH (07:50)
[2022-11-07] MEDS: LORazepam 0.5 MG TAB PO PRN ×2 (07:50→16:37)
[2022-11-07] MEDS: haloperidoL 5 MG TAB PO SCH ×2 (07:50→19:40)
[2022-11-07] MEDS: cloNIDine HCL 0.2 MG TAB PO SCH ×3 (07:50→19:40)
[2022-11-07] MEDS: ATORVASTATIN 20 MG TAB PO SCH (07:50)
--- NOTE | 2022-11-07 10:44 | P.PN ---
Progress Note - Text Progress Note Date: 11/07/22 Interval History: Patient was seen wandering the hallways and was directable and agreeable to sp rochelle with technical writer and editor. Patient claims that he is doing a bit better today. He appears to be less agitated and irritable today. He continues to be focused on his Ativan and other controlled medications. He claims that his anxiety is so high however once to remain on the Haldol. We spoke about the plan for his medications to transition him onto a long-acting injection which she was okay with. He claims that he was able to sleep a bit better last night however states that "the Haldol isn't enough". He did have to take Thorazine prn yesterday due to agitation and aggression. He is denying any depression at this time. Claims that his appetite is fair. He was asking about the court process and speaking with the civil litigation attorney. At this time patient denies any suicidal or homical ideations, intent or plan. Patient denies any auditory, visual hallucinations and denies any paranoia or delusions. Aims yesterday he was hearing voices but not today. Patient denies any side effects from the medicat ions and has been compliant with meds. Mental Status Exam: General Appearance: Patient appears to be short stature, stated age, shaved head, multiple tattoos, dressed in black clothes, fair hygiene and grooming. Behavior: Patient is less aggressive today, attempts to cooperate. Speech: Patient's speech is fluent and non-pressured. Demanding at times. Softer tone of voice. Mood/Affect: Patient reports their mood is depressed and "better", affect is congruent and constricted Suicidality/Homicidality: He admits to suicidal ideations, no intent or plan, admits to homicidal ideations towards his stepfather. Perceptions: Patient denies any visual hallucinations and denies any current auditory hallucinations. Though content/process: Rambles, delusional. Religiously preoccupied, improving mildly. More goal oriented. Memory and concentration: AOX3, grossly intact for the purposes of this session. Judgment and insight: Chronically poor, improving mildly IMPRESSIONS: schizoaffective disorder bipolar type Nicotine dependence Cannabis use disorder, severe Alcohol use disorder Cluster B personality disorder Plan: -Patient continues to meet criteria for inpatient psychiatric admission for symptom stabilization and safety. Patient has not signed adult voluntary form and medication consent and was placed in patient's chart. -Medications: increase Haldol by mouth 5 mg TID for psychosis/mood stabilization and aggression, plan will be to transition onto long-acting injection likely on thursday-thursday. Vistaril 50 mg 3 times a day for anxiety. Clonidine 3 times a day for aggression. added cogentin 0.5 mg bid for eps. increase Trazodone 150 mg daily at bedtime for sleep. -When necessary Ativan and Thorazine prn for agitation/aggression. -NRT - nicotine patch -SW on board for discharge planning. Encouraged the patient to participate in milieu. Will await court hearing date and deferral. likely discharge next week after patient receives Haldol D
[2022-11-07] MEDS: MAGNESIUM HYDROXIDE 2,400 MG/10 ML CUP PO PRN (12:12)
[2022-11-07] MEDS: MAG HYDROX/AL HYDROX/SIMETH 30 ML CUP PO PRN (12:12)
[2022-11-07] MEDS: traZODone HCL 100 MG TAB PO SCH (19:40)
[2022-11-07] MEDS: BENZTROPINE MESYLATE 0.5 MG TAB PO SCH (19:40)
[2022-11-07] MEDS ORDERED: traZODone HCL 50 MG TAB PO SCH (21:00)
[2022-11-08] MEDS: MAG HYDROX/AL HYDROX/SIMETH 30 ML CUP PO PRN ×3 (01:29→22:01)
[2022-11-08] MEDS: ACETAMINOPHEN TAB 325 MG TAB PO PRN ×4 (06:49→20:48)
[2022-11-08] MEDS: LORazepam 0.5 MG TAB PO PRN ×2 (07:49→17:32)
--- NOTE | 2022-11-08 07:52 | P.PN ---
Subjective Progress Note Date: 11/08/22 Principal diagnosis: Schizoaffective disorder Polysubstance abuse Patient was seen wandering the hallways and was directable and agreeable to speak with typewriter assembly and parts inspector. It was hard to hold any kind of conversation with the patient. He has flight of ideas and says, with a pleasant smile on his face, "I'm a Grinch I'm a hard ass I served the devil and God." He talks about Haldol from [employer] and the Thorazine shuffle and Ativan from [employer]. He said that he slept well. When asked him why he kept coming in and out of the hospital he said, "it is because other people piss me off." He rambled about his use of multiple street drugs and how he recently was given $400 and spent it all on marijuana and other things. He gets disability and lives in a trailer on his parents property and does odd jobs. "What I need is to get another , but then I'll have to get a job" Mental Status Exam: I don't see any stiffness, he is on Cogentin which he says he really likes. General Appearance: Patient appears to be short stature, stated age, shaved head, multiple tattoos, dressed in black clothes, fair hygiene and grooming. Behavior: He was smiling the whole time and told me that I was jolly like Tawana. He wanted to know if I could consequence staff for being jerks. Speech: Patient's speech is fluent and non-pressured. Mood/Affect: "I would be fine if people quit irritating me" Suicidality/Homicidality: He admits to suicidal ideations, no intent or plan, admits to homicidal ideations towards his stepfather who he says is a crack head and describes a story where he broke his hand changing his stepfather. Perceptions: Patient denies any visual hallucinations and denies any current auditory hallucinations. Though content/process: Rambles, delusional. Memory and concentration: AOX3, grossly intact for the purposes of this session. Judgment and insight: Chronically poor IMPRESSIONS: schizoaffective disorder bipolar type Nicotine dependence Cannabis use disorder, severe Alcohol use disorder Occasional use of crack Cluster B personality disorder Plan: No changes in medication at this time -Patient continues to meet criteria for inpatient psychiatric admission for symptom stabilization and safety. Patient has not signed adult voluntary form and medication consent. -Medications: Haldol by mouth 5 mg TID for psychosis/mood stabilization and aggression, plan will be to transition onto long-acting injection likely on thursday-thursday. Vistaril 50 mg 3 times a day for anxiety. Clonidine 3 times a day for aggression. Continue cogentin 0.5 mg bid for eps. Continue Trazodone 150 mg daily at bedtime for sleep. -When necessary Ativan and Thorazine prn for agitation/aggression. -NRT - nicotine patch -SW on board for discharge planning. Encouraged the patient to participate in milieu. Will await court hearing date and deferral. likely discharge next week after patient receives Haldol D Objective - Vital Signs Vital signs: Vital Signs Temp 97.9 F 11/07/22 23:19 Pulse 73 11/07/22 23:19 Resp 16 11/07/22 23:19 BP 113/64 11/07/22 23:19 Pulse Ox 99 11/07/22 23:19 FiO2 - Labs CBC & Chem 7: 11/06/22 15:04 11/06/22 15:04
[2022-11-08] MEDS: hydrOXYzine pamoate 25 MG CAP PO SCH ×3 (08:18→20:19)
[2022-11-08] MEDS: BENZTROPINE MESYLATE 0.5 MG TAB PO SCH ×2 (08:19→20:19)
[2022-11-08] MEDS: NICOTINE 21MG/24HR PATCH TRANSDERM SCH (08:19)
[2022-11-08] MEDS: ATORVASTATIN 20 MG TAB PO SCH (08:19)
[2022-11-08] MEDS: haloperidoL 5 MG TAB PO SCH ×3 (08:19→20:19)
[2022-11-08] MEDS: cloNIDine HCL 0.2 MG TAB PO SCH ×3 (08:19→20:19)
[2022-11-08] MEDS: PANTOPRAZOLE 40 MG TABLET PO SCH (08:21)
[2022-11-08] MEDS: NICOTINE GUM (POLACRILEX) 2 MG GUM BUCCAL PRN ×3 (08:35→15:45)
[2022-11-08] MEDS: IBUPROFEN 400 MG TAB PO PRN ×2 (08:36→16:45)
[2022-11-08] MEDS: chlorproMAZINE 100 MG TAB PO PRN ×3 (09:44→20:48)
[2022-11-08] MEDS: MAGNESIUM HYDROXIDE 2,400 MG/10 ML CUP PO PRN (17:16)
[2022-11-08] MEDS: traZODone HCL 100 MG TAB PO SCH (20:19)
[2022-11-09] MEDS: NICOTINE 21MG/24HR PATCH TRANSDERM SCH (08:13)
[2022-11-09] MEDS: haloperidoL 5 MG TAB PO SCH ×3 (08:14→20:45)
[2022-11-09] MEDS: hydrOXYzine pamoate 25 MG CAP PO SCH ×3 (08:14→20:45)
[2022-11-09] MEDS: cloNIDine HCL 0.2 MG TAB PO SCH ×3 (08:14→20:45)
[2022-11-09] MEDS: chlorproMAZINE 100 MG TAB PO PRN ×3 (08:14→20:46)
[2022-11-09] MEDS: BENZTROPINE MESYLATE 0.5 MG TAB PO SCH ×2 (08:15→20:45)
[2022-11-09] MEDS: LORazepam 0.5 MG TAB PO PRN ×2 (08:15→19:38)
[2022-11-09] MEDS: PANTOPRAZOLE 40 MG TABLET PO SCH (08:15)
[2022-11-09] MEDS: ATORVASTATIN 20 MG TAB PO SCH (08:15)
--- NOTE | 2022-11-09 08:55 | P.PN ---
Subjective Progress Note Date: 11/09/22 Principal diagnosis: Schizoaffective disorder Polysubstance abuse Schizoaffective disorder Polysubstance abuse Patient came right up and volunteered to talk with fiction and nonfiction prose writer. It was hard to hold any kind of conversation with the patient. He has flight of ideas and says, with a pleasant smile on his face, "I will fight anyone anymore all just Clopper with my wicked tongue". He then rambled making irrelevant comments on how I was jolly and look like Tawana Connor. There was a alarm went off last night he said "I didn't let it bother me I feared that get me out of here if they needed to, or I could save myself". Mental Status Exam: I don't see any stiffness, he is on Cogentin which he says he really likes. He says he likes all the medicines he just wants to go home. When asked him how he was going to do well after he went home he had no clear answer. General Appearance: Patient appears to be short stature, stated age, shaved head, multiple tattoos, good hygiene and grooming. Behavior: He was smiling the whole time. He wanted to know if I could consequence staff for being jerks. Speech: Patient's speech is fluent and non-pressured. However he makes comments that don't really connected to each other and don't seem to lead anywhere. He is not goal-directed Mood/Affect: Currently pleasant Suicidality/Homicidality: He admits to suicidal ideations, no intent or plan, admits to homicidal ideations towards his stepfather who he says is a crack head and describes a story where he broke his hand changing his stepfather. Perceptions: Patient denies any visual hallucinations and denies any current auditory hallucinations. Though content/process: Rambles, delusional. Memory and concentration: AOX3, grossly intact for the purposes of this session. Judgment and insight: Chronically poor IMPRESSIONS: schizoaffective disorder bipolar type Nicotine dependence Cannabis use disorder, severe Alcohol use disorder Occasional use of crack Cluster B personality disorder Assessment: I think the Haldol beginning to work he seems a little less loose and calmer and more able to handle stress. Plan: No changes in medication at this time -Patient continues to meet criteria for inpatient psychiatric admission for symptom stabilization and safety. Patient has not signed adult voluntary form and medication consent. -Medications: Haldol by mouth 5 mg TID for psychosis/mood stabilization and aggression, plan will be to transition onto long-acting injection likely on thursday-thursday. Vistaril 50 mg 3 times a day for anxiety. Clonidine 3 times a day for aggression. Continue cogentin 0.5 mg bid for eps. Continue Trazodone 150 mg daily at bedtime for sleep. -When necessary Ativan and Thorazine prn for agitation/aggression. -NRT - nicotine patch -SW on board for discharge planning. Encouraged the patient to participate in milieu. Will await court hearing date and deferral. likely discharge next week after patient receives Haldol D Objective - Vital Signs Vital signs: Vital Signs Temp 97.9 F 11/07/22 23:19 Pulse 106 H 11/09/22 08:16 Resp 16 11/07/22 23:19 BP 131/75 11/09/22 08:16 Pulse Ox 99 11/07/22 23:19 FiO2 Intake & Output 11/08/22 11/09/22 11/09/22 18:59 06:59 18:59 Weight 89.358 kg - Labs CBC & Chem 7: 11/06/22 15:04 11/06/22 15:04
[2022-11-09] MEDS: NICOTINE GUM (POLACRILEX) 2 MG GUM BUCCAL PRN ×4 (09:07→23:21)
[2022-11-09] MEDS: ACETAMINOPHEN TAB 325 MG TAB PO PRN ×2 (09:07→19:38)
[2022-11-09] MEDS: MAG HYDROX/AL HYDROX/SIMETH 30 ML CUP PO PRN ×2 (11:40→16:55)
[2022-11-09] MEDS: IBUPROFEN 400 MG TAB PO PRN (16:22)
[2022-11-09] MEDS: MAGNESIUM HYDROXIDE 2,400 MG/10 ML CUP PO PRN (16:55)
[2022-11-09] MEDS: traZODone HCL 100 MG TAB PO SCH (20:45)
[2022-11-10] MEDS: ACETAMINOPHEN TAB 325 MG TAB PO PRN ×3 (00:50→21:49)
[2022-11-10] MEDS: NICOTINE GUM (POLACRILEX) 2 MG GUM BUCCAL PRN ×5 (05:13→22:46)
[2022-11-10] MEDS: LORazepam 0.5 MG TAB PO PRN ×2 (05:13→21:49)
[2022-11-10] MEDS: NICOTINE 21MG/24HR PATCH TRANSDERM SCH (08:01)
[2022-11-10] MEDS: PANTOPRAZOLE 40 MG TABLET PO SCH (08:01)
[2022-11-10] MEDS: haloperidoL 5 MG TAB PO SCH ×3 (08:01→20:45)
[2022-11-10] MEDS: hydrOXYzine pamoate 25 MG CAP PO SCH ×3 (08:01→20:45)
[2022-11-10] MEDS: cloNIDine HCL 0.2 MG TAB PO SCH ×3 (08:02→20:45)
[2022-11-10] MEDS: ATORVASTATIN 20 MG TAB PO SCH (08:02)
[2022-11-10] MEDS: BENZTROPINE MESYLATE 0.5 MG TAB PO SCH ×2 (08:02→20:45)
[2022-11-10] MEDS: chlorproMAZINE 100 MG TAB PO PRN ×3 (09:05→21:49)
[2022-11-10] MEDS: IBUPROFEN 400 MG TAB PO PRN (10:16)
[2022-11-10] MEDS: MAGNESIUM HYDROXIDE 2,400 MG/10 ML CUP PO PRN (10:35)
[2022-11-10] MEDS: MAG HYDROX/AL HYDROX/SIMETH 30 ML CUP PO PRN (10:35)
[2022-11-10] MEDS ORDERED: HALOPERIDOL DECANOATE 100 MG/ML 1 ML VIAL IM STA (10:38)
--- NOTE | 2022-11-10 10:43 | P.PN ---
Progress Note - Text Progress Note Date: 11/10/22 Interval History: Patient was seen wandering the hallways and was directable and agreeable to sp rochelle with television writer. Patient appears to be more constricted in his affect today. He claims that he is doing "much better" and denies any issues over the weekend. He states that he feels that the haloperidol has been helping significantly. He claims that "it helps me sleep, eat better and also not get angry". He appears to be much less irritable and demanding. More cooperative during the interval and directable. He states that he is able to sleep fairly last night and over the weekend. He denies any side effects at this time the medication. We spoke about him needing to sign the deferral or go through the court process and also receive the long-acting injection which she was okay with doing today. At this time patient denies any suicidal or homical ideations, intent or plan. Patient denies any auditory, visual hallucinations and denies any paranoia or delusions. Patient denies any side effects from the medications and has been compliant with meds. Mental Status Exam: General Appearance: Patient appears to be short stature, stated age, shaved head, multiple tattoos, dressed in black clothes, fair hygiene and grooming. Behavior: Patient is less aggressive today, attempts to cooperate. Speech: Patient's speech is fluent and non-pressured. Softer tone of voice. Mood/Affect: Patient reports their mood is "better", affect is congruent and constricted Suicidality/Homicidality: He admits to suicidal ideations, no intent or plan, denies any homicidal ideations towards his stepfather. Perceptions: Patient denies any visual hallucinations and denies any current auditory hallucinations. Though content/process: Improving, More goal oriented. Not endorsing delusions today. Memory and concentration: AOX3, grossly intact for the purposes of this session. Judgment and insight: improving mildly IMPRESSIONS: schizoaffective disorder bipolar type Nicotine dependence Cannabis use disorder, severe Alcohol use disorder Cluster B personality disorder Plan: -Patient continues to meet criteria for inpatient psychiatric admission for symptom stabilization and safety. Patient has not signed adult voluntary form and medication consent and was placed in patient's chart. -Medications: Haldol by mouth 5 mg TID for psychosis/mood stabilization and aggression, ordered Haldol D 100 mg IM today. Vistaril 50 mg 3 times a day for anxiety. Clonidine 3 times a day for aggression. cogentin 0.5 mg bid for eps. Trazodone 200 mg daily at bedtime for sleep. -When necessary Ativan and Thorazine prn for agitation/aggression. -NRT - nicotine patch -SW on board for discharge planning. Encouraged the patient to participate in milieu. Will await court hearing date and deferral. likely discharge in 2-3 days
[2022-11-10] MEDS: traZODone HCL 100 MG TAB PO SCH (20:45)
[2022-11-11] MEDS: MAG HYDROX/AL HYDROX/SIMETH 30 ML CUP PO PRN (03:35)
[2022-11-11] MEDS: ACETAMINOPHEN TAB 325 MG TAB PO PRN ×3 (03:56→20:40)
[2022-11-11] MEDS: NICOTINE 21MG/24HR PATCH TRANSDERM SCH (04:15)
[2022-11-11] MEDS: haloperidoL 5 MG TAB PO SCH ×3 (08:28→20:38)
[2022-11-11] MEDS: BENZTROPINE MESYLATE 0.5 MG TAB PO SCH ×2 (08:28→20:37)
[2022-11-11] MEDS: cloNIDine HCL 0.2 MG TAB PO SCH ×3 (08:28→20:37)
[2022-11-11] MEDS: ATORVASTATIN 20 MG TAB PO SCH (08:28)
[2022-11-11] MEDS: hydrOXYzine pamoate 25 MG CAP PO SCH ×3 (08:28→20:37)
[2022-11-11] MEDS: PANTOPRAZOLE 40 MG TABLET PO SCH (08:28)
[2022-11-11] MEDS: NICOTINE GUM (POLACRILEX) 2 MG GUM BUCCAL PRN ×4 (08:54→22:12)
[2022-11-11] MEDS: IBUPROFEN 400 MG TAB PO PRN (08:54)
[2022-11-11] MEDS ORDERED: chlorproMAZINE 25 MG TAB PO PRN (11:23)
[2022-11-11] MEDS: LORazepam 0.5 MG TAB PO PRN ×2 (11:23→22:12)
[2022-11-11] MEDS ORDERED: busPIRone HCl 10 MG TAB PO PRN (11:24)
--- NOTE | 2022-11-11 11:29 | P.PN ---
Progress Note - Text Progress Note Date: 11/11/22 Interval History: Patient was seen wandering the hallways and was directable and agreeable to nancy byrd with [employer] underwriter. Patient claims that she is doing a bit better today. He states that his mood is "pretty good". He claims that he did have an upset stomach or the year however now she is doing better. He claims that he is sleeping better at nighttime. He states that he is avoiding taking the Thorazine as "I don't like now how it makes me feel". He states that he is okay taking the Haldol. He states that he receive the long-acting injection yesterday and tolerated it well. We discussed the deferral with the prosecuting attorney which hopefully will be done today and required before discharge and also the long-acting injection second dose scheduled for tomorrow which she agreed with. He claims that he is going to some groups. He claims that he is feeling less angry and impulsive at this time and appears to be more constricted and improved in his affect. At this time patient denies any suicidal or homical ideations, intent or plan. Patient denies any auditory, visual hallucinations and denies any paranoia or delusions. Patient denies any side effects from the medications and has been compliant with meds. Mental Status Exam: General Appearance: Patient appears to be short stature, stated age, shaved head, multiple tattoos, dressed in black clothes, fair hygiene and grooming. Behavior: Patient attempts to cooperate. directable Speech: Patient's speech is fluent and non-pressured. Softer tone of voice. Mood/Affect: Patient reports their mood is "good", affect is congruent and constricted Suicidality/Homicidality: denies any suicidal ideations, no intent or plan, denies any homicidal ideations Perceptions: Patient denies any visual hallucinations and denies any current auditory hallucinations. Though content/process: Improving, More goal oriented. Not endorsing delusions today. concrete. Memory and concentration: AOX3, grossly intact for the purposes of this session. Judgment and insight: improving mildly IMPRESSIONS: schizoaffective disorder bipolar type Nicotine dependence Cannabis use disorder, severe Alcohol use disorder Cluster B personality disorder Plan: -Patient continues to meet criteria for inpatient psychiatric admission for symptom stabilization and safety. Patient has not signed adult voluntary form and medication consent and was placed in patient's chart. -Medications: Haldol by mouth 5 mg TID for psychosis/mood stabilization and aggression, tomorrow ill decrease to BID, received Haldol D 100 mg IM on 2 and second dose of 50 mg IM to be given tomorrow morning. Vistaril 50 mg 3 times a day for anxiety. Clonidine 3 times a day for aggression. cogentin 0.5 mg bid for eps. Trazodone 200 mg daily at bedtime for sleep. added buspar 20 mg tid prn for anxiety -When necessary Ativan and Thorazine prn for agitation/aggression. -NRT - nicotine patch -SW on board for discharge planning. Encouraged the patient to participate in milieu. Will await court hearing date and deferral. likely discharge tomorrow after patient receives his second dose of Haldol D. Patients mother is ok for patient to come back home.
[2022-11-11] MEDS: MAGNESIUM HYDROXIDE 2,400 MG/10 ML CUP PO PRN (12:30)
[2022-11-11] MEDS: traZODone HCL 100 MG TAB PO SCH (20:37)
[2022-11-12] MEDS: IBUPROFEN 400 MG TAB PO PRN (00:11)
[2022-11-12] MEDS: hydrOXYzine pamoate 25 MG CAP PO SCH (08:49)
[2022-11-12] MEDS: ATORVASTATIN 20 MG TAB PO SCH (08:49)
[2022-11-12] MEDS: cloNIDine HCL 0.2 MG TAB PO SCH (08:51)
[2022-11-12] MEDS: NICOTINE GUM (POLACRILEX) 2 MG GUM BUCCAL PRN (08:51)
[2022-11-12] MEDS: NICOTINE 21MG/24HR PATCH TRANSDERM SCH (08:51)
[2022-11-12] MEDS: PANTOPRAZOLE 40 MG TABLET PO SCH (08:51)
[2022-11-12] MEDS: haloperidoL 5 MG TAB PO SCH (08:51)
[2022-11-12] MEDS: BENZTROPINE MESYLATE 0.5 MG TAB PO SCH (08:51)
[2022-11-12 08:55] VITALS: BP 124/66; PULSE 94; RESP 16; TEMP 97.2
[2022-11-12] MEDS ORDERED: HALOPERIDOL DECANOATE 50 MG/ML 1 ML VIAL IM ONE (09:00)
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
[2022-11-12] MEDS: ACETAMINOPHEN TAB 325 MG TAB PO PRN (13:20)
== END 2022-11-12 15:35 | disposition home or self-care (01) | DRG 885 ==
LOC: EC 13:32 → 3MHU 18:02
PROVIDERS: ADMIT Psychiatry & Neurology Psychiatry; ATTEND Psychiatry & Neurology Psychiatry
DX: F25.0 Schizoaffective disorder, bipolar type (principal); F10.10 Alcohol abuse, uncomplicated; F12.20 Cannabis dependence, uncomplicated; F17.210 Nicotine dependence, cigarettes, uncomplicated; F60.89 Other specific personality disorders; I10 Essential (primary) hypertension; M79.7 Fibromyalgia; Z63.72 Alcoholism and drug addiction in family; Z79.899 Other long term (current) drug therapy; Z81.1 Family history of alcohol abuse and dependence; Z81.8 Family history of other mental and behavioral disorders; Z20.822 Contact with and (suspected) exposure to COVID-19
CPT/HCPCS: 80053; 80306; 81003; 82075; 85025; 87635; 99285

== ENCOUNTER 2025-06-09 19:57 | Emergency (ER) | payer MEDICARE, OTHER ==
[2025-06-09 20:02] VITALS: RESP 18
--- NOTE | 2025-06-09 20:42 | ED ---
ENT HPI - General Chief complaint: Dental/Oral Stated complaint: Abcess tooth Time Seen by Provider: 06/09/25 20:15 Source: patient, RN notes reviewed Mode of arrival: ambulatory Limitations: no limitations - History of Present Illness Initial comments: This is a 40-year-old male with history including EtOH abuse and fibromyalgia presenting for dental pain (08/18) x 3 days. Patient endorses history of poor dentition, noting pain of his front lower incisors with associated gingival and lower lip erythema/edema. Denies fever, chills, dyspnea, oropharyngeal edema, drooling, trismus. MD complaint: tooth pain Onset/Timin -: days(s) Location: lower lip 1 - Poor dentition, erythematous gingiva with possible periapical abscess Severity scale (1-10): 10 Consistency: constant Context- Dental: history of dental caries, poor dental care Associated Symptoms: gum swelling - Related Data Home Medications Medication Instructions Recorded Confirmed Cholecalciferol [Vitamin D3 (125 125 mcg PO DAILY 10/18/22 11/08/22 Mcg = 5000 Iu)] Ibuprofen [Motrin] 400 mg PO Q6H PRN 11/05/22 11/08/22 Previous Rx's Medication Instructions Recorded Acetaminophen Tab [Tylenol] 650 mg PO Q4HR PRN tab 11/12/22 Atorvastatin [Lipitor] 20 mg PO DIRECTED 30 Days tab 11/12/22 Benztropine Mesylate [Cogentin] 0.5 mg PO BID 30 Days tab 11/12/22 Haloperidol Decanoate [Haldol D] 150 mg IM Q14D #1 each 11/12/22 Nicotine 21Mg/24Hr Patch [Habitrol] 1 patch TRANSDERM DAILY 14 Days 11/12/22 patch Nicotine Gum (Polacrilex) 2 mg BUCCAL Q4HR PRN 28 Days 11/12/22 [Nicorette] pieceofgum Omeprazole 20 mg PO DIRECTED 30 Days cap 11/12/22 busPIRone HCl [Buspar] 20 mg PO TID PRN 30 Days tab 11/12/22 cloNIDine HCL [Catapres] 0.2 mg PO TID 30 Days tab 11/12/22 haloperidoL [Haldol] 5 mg PO BID 3 Days tab 11/12/22 hydrOXYzine pamoate [Vistaril] 50 mg PO TID PRN 30 Days cap 11/12/22 lisinopriL [Zestril] 2.5 mg PO DAILY 30 Days tab 11/12/22 traZODone HCL [Desyrel] 200 mg PO HS 30 Days tab 11/12/22 Amoxic-Pot Clav 875-125Mg 1 tab PO Q12HR 10 Days #20 tab 04/08/25 [Augmentin 875-125] Amoxic-Pot Clav 875-125Mg 1 tab PO Q12HR #20 tab 06/09/25 [Augmentin 875-125] Chlorhexidine Gluconate [Periogard] 15 ml MUCOUS MEM TID #473 ml 06/09/25 Ibuprofen [Motrin] 800 mg PO Q8HR PRN #30 tab 06/09/25 Allergies Allergy/AdvReac Type Severity Reaction Status Date / Time bee pollen Allergy Unknown Verified 06/09/25 20:02 venom-honey bee Allergy Anaphylaxis Verified 06/09/25 20:02 [bee venom (honey bee)] Review of Systems ROS Statement: Those systems with pertinent positive or pertinent negative responses have been documented in the HPI. ROS Other: All systems not noted in ROS Statement are negative. Past Medical History Past Medical History: Fibromyalgia, Hypertension Additional Past Medical History / Comment(s): carpal tunnel, back pain History of Any Multi-Drug Resistant Organisms: None Reported Past Surgical History: No Surgical Hx Reported Past Anesthesia/Blood Transfusion Reactions: No Reported Reaction Past Psychological History: Anxiety, Bipolar, Depression, Schizoaffective Disorder Smoking Status: Current every day smoker, Vaper Past Alcohol Use History: Abuse, Daily Past Drug Use History: Marijuana - Past Family History family Family Medical History: Hypertension General Exam Limitations: no limitations General appearance: alert, in no apparent distress Head exam: Present: atraumatic, normocephalic, normal inspection Eye exam: Present: normal appearance, PERRL, EOMI. Absent: scleral icterus, conjunctival injection, periorbital swelling ENT exam: Present: mucous membranes moist, other (Negative elevation of floor of mouth, trismus, drooling, dyspnea, uvular deviation). Absent: normal oropharynx (Extremely poor dentition with inferior gingiva erythema and periapical abscess. Positive overlying facial edema, erythema, tenderness) Neck exam: Present: normal inspection. Absent: tenderness, meningismus, lymphadenopathy Respiratory exam: Present: normal lung sounds bilaterally. Absent: respiratory distress, wheezes, rales, rhonchi, stridor Cardiovascular Exam: Present: regular rate, normal rhythm, normal heart sounds. Absent: systolic murmur, diastolic murmur, rubs, gallop, clicks GI/Abdominal exam: Present: soft, normal bowel sounds. Absent: distended, tenderness, guarding, rebound, rigid Extremities exam: Present: normal inspection, full ROM, normal capillary refill. Absent: tenderness, pedal edema, joint swelling, calf tenderness Back exam: Present: normal inspection Neurological exam: Present: alert, oriented X3, CN II-XII intact Psychiatric exam: Present: normal affect, normal mood Skin exam: Present: warm, dry, intact, normal color. Absent: rash Course Vital Signs 06/09/25 06/09/25 19:59 21:29 Temperature 99 F 97.6 F Pulse Rate 86 67 Respiratory 18 18 Rate Blood Pressure 141/89 125/80 O2 Sat by Pulse 99 99 Oximetry Procedures - Incision & Drainage Consent Obtained: verbal consent Indication: Abscess Site: oral Needle Aspiration Performed?: Yes I&D Drainage Obtained: Other (None) Patient Tolerated Procedure: well, no complications Medical Decision Making - Medical Decision Making Was pt. sent in by a medical professional or institution (, PA, MASTER CERTIFIED RV TECHNICIAN, urgent care, hospital, or retirement...) When possible be specific @ -No Did you speak to anyone other than the patient for history (EMS, parent, family, police, friend...)? What history was obtained from this source @ -No Did you review nursing and triage notes (agree or disagree)? Why? @ -I reviewed and agree with nursing and triage notes Were old charts reviewed (outside hosp., previous admission, EMS record, old EKG, old radiological studies, urgent care reports/EKG's, retirement records)? Report findings @ -No old charts were reviewed Differential Diagnosis (chest pain, altered mental status, abdominal pain women, abdominal pain men, vaginal bleeding, weakness, fever, dyspnea, syncope, headache, dizziness, GI bleed, back pain, seizure, CVA, palpatations, mental health, musculoskeletal)? @ -ANUG, periapical abscess, dental fracture, gingivitis, Mao's angina, this is not an exhaustive list EKG interpreted by me (3pts min.). @ -Not done X-rays interpreted by me (1pt min.). @ -None done CT interpreted by me (1pt min.). @ -None done U/S interpreted by me (1pt. min.). @ -None done What testing was considered but not performed or refused? (CT, X-rays, U/S, labs)? Why? @ -None What meds were considered but not given or refused? Why? @ -None Did you discuss the management of the patient with other professionals (professionals i.e. , PA, MASTER CERTIFIED RV TECHNICIAN, lab, RT, psych nurse, social professionals, fleet maintenance foreman, teacher, air antisubmarine officer, correctional counselor/case manager)? Give summary @ -No Was smoking cessation discussed for >3mins.? @ -No Was critical care preformed (if so, how long)? @ -No Were there social determinants of health that impacted care today? How? (Homelessness, low income, unemployed, alcoholism, drug addiction, transportat ion, low edu. Level, literacy, decrease access to med. care, fpc, rehab)? @ -No Was there de-escalation of care discussed even if they declined (Discuss DNR or withdrawal of care, Hospice)? DNR status @ -No What co-morbidities impacted this encounter? (DM, HTN, Smoking, COPD, CAD, Cancer, CVA, ARF, Chemo, Hep., AIDS, mental health diagnosis, sleep apnea, morbid obesity)? @ -None Was patient admitted / discharged? Hospital course, mention meds given and route, prescriptions, significant lab abnormalities, going to OR and other pertinent info. @ -Patient provided p.o. [place], Motrin, Augmentin and IM Solu-Medrol. Attempted needle aspiration of suspected periapical abscess with no fluid or purulent material aspirated. Patient discharged with T3 starter pack. Augmentin, chlorhexidine mouthwash and Motrin 800 sent to patient's pharmacy. Advised swish with warm salt water as needed. Follow-up with dentist for definitive care/management of dental issues. Discussed patient with Dr. Esparza. Undiagnosed new problem with uncertain prognosis? @ -No Drug Therapy requiring intensive monitoring for toxicity (Heparin, Nitro, Insulin, Cardizem)? @ -No Were any procedures done? @ -Attempted needle aspiration of suspected periapical abscess with no fluid or purulent material aspirated. See procedure note Diagnosis/symptom? @ -ANUG Acute, or Chronic, or Acute on Chronic? @ -Acute Uncomplicated (without systemic symptoms) or Complicated (systemic symptoms)? @ -Uncomplicated Side effects of treatment? @ -No Exacerbation, Progression, or Severe Exacerbation? @ -No Poses a threat to life or bodily function? How? (Chest pain, [place], [place], pneumonia, PE, COPD, DKA, ARF, appy, cholecystitis, CVA, Diverticulitis, Homicidal, Suicidal, threat to staff... and all critical care pts) @ -No Disposition Clinical Impression: Acute necrotizing ulcerative gingivitis Disposition: HOME SELF-CARE Condition: Fair Instructions (If sedation given, give patient instructions): Trench Mouth (ED) Additional Instructions: Alternate Tylenol/Motrin every 4 hours for pain. Swish with warm salt water as needed. Follow-up with dentist for ongoing evaluation and management of dentition. Prescriptions: Amoxic-Pot Clav 875-125Mg [Augmentin 875-125] 1 tab PO Q12HR #20 tab Ibuprofen [Motrin] 800 mg PO Q8HR PRN #30 tab PRN Reason: Pain Chlorhexidine Gluconate [Periogard] 15 ml MUCOUS MEM TID #473 ml Is patient prescribed a controlled substance at d/c from ED?: No Referrals: Salima Britton MD [Primary Care Provider] - 1-2 days Galo Mcnamara DDS [STAFF PHYSICIAN] - 1-2 days Time of Disposition: 20:44
[2025-06-09] MEDS: HYDROcodone/APAP 7.5-325MG 1 EACH TAB PO ONE (20:43)
[2025-06-09] MEDS: methylPREDNISolone SOD SUCCI 125 MG/2 ML VIAL IM ONE (20:43)
[2025-06-09] MEDS: IBUPROFEN 800 MG TAB PO STA (20:44)
[2025-06-09] MEDS: AMOXIC-POT CLAV 875-125MG 1 EACH TAB PO STA (20:44)
[2025-06-09] MEDS: ACET/COD 300 MG/30 MG STARTER PACK TAB BTL PO STA (21:24)
[2025-06-09 21:30] VITALS: BP 125/80; PULSE 67; TEMP 97.6
== END 2025-06-09 21:32 | disposition home or self-care (01) ==
LOC: EC 19:57
DX: A69.1 Other Vincent's infections (principal); F17.290 Nicotine dependence, other tobacco product, uncomplicated; Z91.030 Bee allergy status
CPT/HCPCS: 99283; 96372; 10060; J2919